=== PATIENT | male | born 1945 | race Caucasian/White ===

== ENCOUNTER 2017-02-03 07:14 | Day surgery (SDC) | payer MEDICARE, BC ==
[2017-02-03] VITALS (9 sets, daily range): BP systolic 130–175; BP diastolic 57–95; PULSE 68–85; TEMP 97.6
[~2017-02-03] VITALS: Ht 182.9 cm; Wt 104.5 kg
[2017-02-03] MEDS ORDERED: GLUCOPHAGE1000 MG PO (08:00)
[2017-02-03] MEDS ORDERED: JANUVIA50 MG PO (08:00)
[2017-02-03] MEDS ORDERED: CANA100T PO (08:01)
[2017-02-03] MEDS ORDERED: NORVASC 5MG5 MG/TAB PO (08:02)
[2017-02-03] MEDS ORDERED: COREG 25MG25 MG/TAB PO (08:02)
[2017-02-03] MEDS ORDERED: AMARYL4 MG PO (08:02)
[2017-02-03] MEDS ORDERED: COZAAR 50MG50 MG/TAB PO (08:03)
[2017-02-03 08:04] LABS: MEAN CELL VOLUME 92 fl (80.0-100.0); MEAN CORPUSCULAR HGB CONC 32 g/dl (33.0-37.0); MEAN PLATELET VOLUME 11.5 fl (7.4-10.4); PLATELET COUNT 120 K/mm3 (130-400); RED BLOOD COUNT 3.33 M/mm3 (4.20-5.60); REDCELL DISTRIBUTION WIDTH-CV 14.5 % (11.5-14.5); WHITE BLOOD COUNT 5.3 K/mm3 (4.8-10.8)
[2017-02-03] MEDS ORDERED: ZYLOPRIM 100MG100 MG PO (08:04)
[2017-02-03] MEDS ORDERED: PRILOSEC 20MG20 MG PO (08:04)
[2017-02-03] MEDS ORDERED: PRAVACHOL 20MG20 MG PO (08:04)
[2017-02-03] MEDS ORDERED: OMEGA-3 1000 MG1 CAP PO (08:05)
[2017-02-03] MEDS ORDERED: INDOCIN50 MG PO (08:05)
[2017-02-03 08:06] LABS: HEMATOCRIT 30.5 % (42.0-52.0); HEMOGLOBIN 9.8 g/dl (13.5-18.0); MEAN CORPUSCULAR HEMOGLOBIN 29 pg (27.0-31.0)
[2017-02-03] MEDS ORDERED: FOLIC ACID800 MCG PO (08:06)
[2017-02-03] MEDS ORDERED: NIACIN FLUSH F400 MG PO (08:06)
[2017-02-03] MEDS ORDERED: THE MEDICINE S200 M2 PO (08:07)
[2017-02-03 08:08] LABS: CALCIUM 8.8 mg/dL (8.4-10.2); CREATININE, serum 1.36 mg/dL (0.66-1.25); POTASSIUM 4.9 mmol/L (3.4-5.0)
[2017-02-03] MEDS ORDERED: B COMPLEX #11 TA1 PO (08:08)
[2017-02-03 08:09] LABS: INR 1.1 (0.8-3.0); PROTHROMBIN TIME 11.9 SECONDS (9.7-12.8)
[2017-02-03] MEDS ORDERED: ASPIRIN 81M81 MG/TA2 PO (08:11)
[2017-02-03] MEDS ORDERED: VITAMIN D31000 IU PO (08:13)
[2017-02-03] MEDS ORDERED: BETACAROTENE PO (08:13)
== END 2017-02-03 13:42 | disposition critical access hospital (66) ==
LOC: EUO 07:14 → COL.RAD 07:30 → EUO 07:30
PROVIDERS: Internal Medicine Cardiovascular Disease
DX: I25.10 Atherosclerotic heart disease of native coronary artery without angina pectoris (principal); R94.39 Abnormal result of other cardiovascular function study; R06.00 Dyspnea, unspecified; E11.9 Type 2 diabetes mellitus without complications; I10 Essential (primary) hypertension; E78.5 Hyperlipidemia, unspecified
CPT/HCPCS: C1769; C1887; C1894; J0153; J1644; J2250; J3010; Q9967

== ENCOUNTER 2017-03-31 08:18 | Outpatient (CLI) | payer MEDICARE, BC ==
[~2017-03-31] VITALS: Ht 182.9 cm; Wt 100.9 kg
[~2017-03-31 08:18] MED LIST: AMARYL4 MG PO; ASPIRIN 81M81 MG/TA2 PO; B COMPLEX #11 TA1 PO; BETACAROTENE PO; CANA100T PO; COREG 25MG25 MG/TAB PO; COZAAR 50MG50 MG/TAB PO; FOLIC ACID800 MCG PO; GLUCOPHAGE1000 MG PO; INDOCIN50 MG PO; JANUVIA50 MG PO; NIACIN FLUSH F400 MG PO; NORVASC 5MG5 MG/TAB PO; OMEGA-3 1000 MG1 CAP PO; PRAVACHOL 20MG20 MG PO; PRILOSEC 20MG20 MG PO; THE MEDICINE S200 M2 PO; VITAMIN D31000 IU PO; ZYLOPRIM 100MG100 MG PO
[2017-03-31] MEDS ORDERED: PACERONE200 MG PO (08:46)
[2017-03-31] MEDS ORDERED: ELIQUIS 5MG PO (08:48)
[2017-03-31] MEDS ORDERED: LIPITOR20 MG PO (08:49)
[2017-03-31] MEDS ORDERED: COREG 6.256.25 MG/TA PO (08:50)
[2017-03-31 09:00] VITALS: BP 180/67; PULSE 76; TEMP 97.9
== END 2017-03-31 11:53 | disposition home or self-care (01) ==
LOC: COL.CAR 08:18
DX: I48.0 Paroxysmal atrial fibrillation (principal); J84.10 Pulmonary fibrosis, unspecified; E78.5 Hyperlipidemia, unspecified; Z95.1 Presence of aortocoronary bypass graft; I10 Essential (primary) hypertension; E11.9 Type 2 diabetes mellitus without complications
CPT/HCPCS: C1764

== ENCOUNTER 2018-01-01 08:52 | Day surgery (SDC) | payer MEDICARE, BC ==
[~2018-01-01] VITALS: Ht 182.9 cm; Wt 107.7 kg
[2018-01-01] VITALS (11 sets, daily range): BP systolic 138–206; BP diastolic 69–96; PULSE 60–93; TEMP 98.7
[~2018-01-01 08:52] MED LIST changes: +COREG 6.256.25 MG/TA PO; +ELIQUIS 5MG PO; +LIPITOR20 MG PO; +PACERONE200 MG PO
[2018-01-01 09:29] LABS: MEAN CELL VOLUME 103 fl (80.0-100.0); MEAN CORPUSCULAR HGB CONC 33 g/dl (33.0-37.0); MEAN PLATELET VOLUME 11.3 fl (7.4-10.4); PLATELET COUNT 125 K/mm3 (130-400); RED BLOOD COUNT 3.39 M/mm3 (4.20-5.60); REDCELL DISTRIBUTION WIDTH-CV 13.9 % (11.5-14.5)
[2018-01-01 09:30] LABS: HEMATOCRIT 34.8 % (42.0-52.0); HEMOGLOBIN 11.6 g/dl (13.5-18.0); MEAN CORPUSCULAR HEMOGLOBIN 34 pg (27.0-31.0)
[2018-01-01 09:35] LABS: INR 1.1 (0.8-3.0); PROTHROMBIN TIME 12.4 SECONDS (9.7-12.8)
[2018-01-01 09:45] LABS: CALCIUM 8.9 mg/dL (8.4-10.2); CREATININE, serum 1.34 mg/dL (0.66-1.25); POTASSIUM 4.6 mmol/L (3.4-5.0)
[2018-01-01] MEDS ORDERED: LASIX 20MG TABL20 MG PO (09:55)
[2018-01-01] MEDS ORDERED: NORVASC2.5 MG PO (09:55)
[2018-01-01] MEDS ORDERED: OFEV150 MG PO (09:56)
[2018-01-01] MEDS ORDERED: NIACIN NO FLUSH1 CAP PO (09:57)
[2018-01-01] MEDS ORDERED: NORVASC 5MG5 MG/TAB PO (13:55)
[2018-01-01] MEDS ORDERED: COREG 25MG25 MG/TAB PO (13:56)
== END 2018-01-01 18:30 | disposition home or self-care (01) ==
LOC: COL.CAR 08:52
PROVIDERS: Internal Medicine Cardiovascular Disease
DX: I25.810 Atherosclerosis of coronary artery bypass graft(s) without angina pectoris (principal); I47.2 Ventricular tachycardia; I25.82 Chronic total occlusion of coronary artery; E11.9 Type 2 diabetes mellitus without complications; I73.9 Peripheral vascular disease, unspecified; Z95.5 Presence of coronary angioplasty implant and graft; J84.10 Pulmonary fibrosis, unspecified; Z99.81 Dependence on supplemental oxygen; I10 Essential (primary) hypertension; Z95.1 Presence of aortocoronary bypass graft
CPT/HCPCS: C1760; C1769; C1894; J0360; J2250; J3010; Q9967

== ENCOUNTER 2020-05-08 17:51 | Inpatient (IN) | payer MEDICARE, BC ==
[~2020-05-08] VITALS: Ht 182.9 cm; Wt 98.1 kg
[~2020-05-08 17:51] MED LIST changes: +AMARYL 2MG T2 MG/TAB PO; -AMARYL4 MG PO; +LASIX 20MG TABL20 MG PO; +NIACIN NO FLUSH1 CAP PO; +NORVASC2.5 MG PO; +OFEV150 MG PO; -ZYLOPRIM 100MG100 MG PO; +ZYLOPRIM 300MG300 MG PO
[2020-05-08 23:14] VITALS: BP 161/85; PULSE 119; TEMP 97.5
[2020-05-08 23:40] VITALS: BP 173/80; PULSE 110; TEMP 97.4
[2020-05-08] MEDS ORDERED: CARDIZEM LA180 MG PO (23:49)
[2020-05-08] MEDS ORDERED: BYSTOLIC10 MG PO (23:50)
[2020-05-08] MEDS ORDERED: GLUCOPHAGE1000 MG PO (23:51)
[2020-05-08] MEDS ORDERED: DEMADEX10 MG PO (23:54)
[2020-05-08] MEDS ORDERED: PROTONIX 40MG T40 MG PO (23:55)
[2020-05-08] MEDS ORDERED: SLO-NIACIN500 MG PO (23:57)
[2020-05-08] MEDS ORDERED: PLAVIX 75MG TAB75 MG PO (23:58)
[2020-05-09] VITALS (7 sets, daily range): BP systolic 119–159; BP diastolic 53–97; PULSE 63–99; TEMP 97.3–98.2
[2020-05-09] MEDS ORDERED: PROAIR HFA0.09 MG/AC IH (00:05)
[2020-05-09] MEDS ORDERED: FOLIC ACID 11 MG/TA1 PO (00:14)
[2020-05-09] MEDS ORDERED: VITAMIN C500 MG PO (00:17)
[2020-05-09] MEDS ORDERED: INDOCIN50 MG PO (00:21)
[2020-05-09] MEDS ORDERED: BIOTIN5000 MCG PO (00:22)
--- NOTE | 2020-05-09 07:13 | NUR ---
Report given to ERIN Suarez.
[2020-05-09 08:31] LABS: BASO % 0.1 % (0.0-2.0); EOS # 0.8 (0.0-0.7); EOS % 8.6 % (0-4.0); GRAN # 6.4 (1.4-6.5); GRAN % 72.1 % (42.2-75.2); HEMATOCRIT 39.5 % (42.0-52.0); HEMOGLOBIN 12.7 g/dl (13.5-18.0); LYMPH % 11.5 % (20.0-51.0); MEAN CELL VOLUME 110 fl (80.0-100.0); MEAN CORPUSCULAR HEMOGLOBIN 36 pg (27.0-31.0); MEAN CORPUSCULAR HGB CONC 32 g/dl (33.0-37.0); MEAN PLATELET VOLUME 12.1 fl (7.4-10.4); MONO # 0.6 (0.1-0.6); MONO % 7.1 % (1.7-9.3); PLATELET COUNT 75 K/mm3 (130-400); RED BLOOD COUNT 3.58 M/mm3 (4.20-5.60); REDCELL DISTRIBUTION WIDTH-CV 15.9 % (11.5-14.5)
[2020-05-09 08:46] LABS: ALBUMIN 4.2 gm/dL (3.5-5.0); CALCIUM 9.3 mg/dL (8.4-10.2); CREATININE, serum 4.76 (0.66-1.25); PHOSPHOROUS 5.8 mg/dL (2.5-4.5); POTASSIUM 4.4 mmol/L (3.4-5.0)
--- NOTE | 2020-05-09 09:40 | NUR ---
PT AOX4. DENIES PAIN. STEADY INDEPENDENT AMBULATION. AT BEDSIDE. 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 ABLE TO MAKE NEEDS KNOWN. ATE 80% BREAKFAST. DENIES SOB AT THIS TIME
--- NOTE | 2020-05-09 11:17 | NUR ---
Superintendent Job met with patient and patient's , Ni (ph#[phone]) to discuss discharge planning. Patient lives in [place] with Ni and sees Dr. Peterson for primary care. Patient has many of his medications [facility], but also sometimes picks up medications from [facility] in [place], depending on medication costs. Patient reports independence with ADLS and denies DME usage. Patient states his , Ni is his DPOA. Patient plans to return home at discharge. PT/OT have been ordered. SW to continue to follow as needed.
[2020-05-09 14:13] LABS: MUCOUS Present /lpf; PH 5 (5-8); SQUAMOUS EPITHELIAL None Seen /hpf; URINE APPEARANCE Hazy; URINE BACTERIA Rare /hpf; URINE BILIRUBIN Negative (NEGATIVE); URINE BLOOD Negative (NEGATIVE); URINE COLOR Yellow; URINE GLUCOSE Negative (NEGATIVE); URINE KETONE Negative (NEGATIVE); URINE LEUKOCYTE ESTERASE Negative (NEGATIVE); URINE NITRATE Negative (NEGATIVE); URINE PROTEIN(semi-quant) 2+ (NEGATIVE); URINE RBC 0-2 /hpf; URINE UROBILINOGEN Negative (NEGATIVE); URINE WBC 0-2 /hpf
[2020-05-09 14:21] LABS: COLLECTION METHOD CLEAN CATCH
[2020-05-09 14:28] LABS: URINE PROTEIN:CREAT RATIO 0.51 (0.00-0.14)
[2020-05-09 14:54] LABS: CREATININE, serum 4.21 (0.66-1.25); FRACTIONAL EXCRETION OF NA+ 0.4 %
--- NOTE | 2020-05-09 15:59 | NUR ---
CARE TRANSFERED TO ANABELL KHAN @ 1600. NO NEW CONCERNS. PT AOX4. MELYSSA BROOKS
--- NOTE | 2020-05-09 16:18 | NUR ---
Cares taken over for ERIN Suarez. pt sitting in recliner, A&O, denies needs at this time.
[2020-05-09 20:27] LABS: ALBUMIN 3.7 gm/dL (3.5-5.0); BILIRUBIN,TOTAL 0.8 mg/dL (0.0-1.0); CALCIUM 8.8 mg/dL (8.4-10.2); CREATININE, serum 4.31 (0.66-1.25); POTASSIUM 4.1 mmol/L (3.4-5.0); TOTAL PROTEIN 6.8 gm/dL (6.4-8.2)
--- NOTE | 2020-05-09 20:30 | NUR ---
Received report from ERIN Palomares. A/O X4. Pt sitting in recliner chair eating dinner. Meds administered. Denies any pain or discomfort at this time. INT to RH intact, flushed without issue. Explained to pt to notify staff after using BR to measure PVR, pt understands. Needs met. Call light within reach.
[2020-05-10 03:12] VITALS: BP 112/59; PULSE 73; TEMP 98.4
--- NOTE | 2020-05-10 06:21 | NUR ---
Pt uneventful during this shift. Pt aware of PVR bladder scan and to notify staff after he voids. Urinal in BR. Meds administered. Pt slept in recliner chair last night. Call light within reach.
--- NOTE | 2020-05-10 07:04 | NUR ---
Report given to ERIN Palomares RN.
[2020-05-10 07:24] VITALS: BP 123/52; PULSE 80; TEMP 97.5
[2020-05-10 08:10] LABS: BASO % 0.1 % (0.0-2.0); EOS # 1.6 (0.0-0.7); EOS % 15.5 % (0-4.0); GRAN # 6.9 (1.4-6.5); GRAN % 66.4 % (42.2-75.2); HEMATOCRIT 38.3 % (42.0-52.0); HEMOGLOBIN 12.5 g/dl (13.5-18.0); LYMPH # 1.1 (1.2-3.4); LYMPH % 10.7 % (20.0-51.0); MEAN CELL VOLUME 107 fl (80.0-100.0); MEAN CORPUSCULAR HEMOGLOBIN 35 pg (27.0-31.0); MEAN CORPUSCULAR HGB CONC 33 g/dl (33.0-37.0); MEAN PLATELET VOLUME 11.5 fl (7.4-10.4); MONO # 0.7 (0.1-0.6); MONO % 6.8 % (1.7-9.3); PLATELET COUNT 65 K/mm3 (130-400); RED BLOOD COUNT 3.59 M/mm3 (4.20-5.60)
[2020-05-10 08:19] LABS: ALBUMIN 4.2 gm/dL (3.5-5.0); CALCIUM 9.2 mg/dL (8.4-10.2); CREATININE, serum 4.26 (0.66-1.25); PHOSPHOROUS 4.9 mg/dL (2.5-4.5)
[2020-05-10 09:37] LABS: RETIC # 0.04 M/mm3 (0.02-0.16); RETIC % 1.2 % (0.5-3.52)
[2020-05-10 12:50] VITALS: BP 102/56; PULSE 80; TEMP 97.5
[2020-05-10 16:01] VITALS: BP 115/59; PULSE 73; TEMP 97.7
--- NOTE | 2020-05-10 16:16 | NUR ---
Pt assessment completed and charted, roomair, independent. I/V flushed without complications. Morning meds provided as per JAN, breakfast and lunch tolerated well. No N/V/D, pain, numbness, tingling, SOB at this time as per pt. came to visit for sometime. Did void only once in the morning sometimes and asked him to inform the nurse, if he goes again, so I could do the after void bladder scan. No further needs at this time.
--- NOTE | 2020-05-10 18:35 | NUR ---
Pt rested, slept on and off on his chair. Accu checked and treated as per JAN. Bladder scan done and showed 52 ml as the highest amount. Informed pt to tell the nurse next time when he void, so the nurse could do the post void bladder scan. No further needs at this time.
[2020-05-10 19:00] VITALS: BP 114/56; PULSE 68; TEMP 98.3
--- NOTE | 2020-05-10 20:30 | NUR ---
Report received from ERIN Palomares. Pt sitting in chair upon entry. Denies any pain or concerns at this time. Meds adminsitered as ordered. INT to LH intact, flushed, dressing CDI. Pt understands to notify staff after he voids to do bladder scan. Needs met at this time. Call light within reach.
[2020-05-10 23:01] VITALS: BP 120/50; PULSE 70; TEMP 97.4
[2020-05-11 03:28] VITALS: BP 122/57; PULSE 71; TEMP 98.3
[2020-05-11 05:20] LABS: FOLATE (FOLIC ACID) 15.4 ng/mL (>=4.0)
--- NOTE | 2020-05-11 06:00 | NUR ---
Pt uneventful during this shift. Pt did not call out to staff if he voided during this shift. Pt slept in recliner chair. Meds administered. Call light within reach.
--- NOTE | 2020-05-11 07:11 | NUR ---
Report given to ERIN Doan and ERIN Palomares.
[2020-05-11 07:50] LABS: KAPPA FREE LIGHT CHAIN-SERUM 113.04 mg/L (()); KAPPA LAMBDA RATIO 1.68 ratio (()); LAMDA FREE LIGHT CHAIN SERUM 67.41 mg/L (())
[2020-05-11 08:22] LABS: BASO % 0.2 % (0.0-2.0); EOS # 1.1 (0.0-0.7); EOS % 11.2 % (0-4.0); GRAN # 7.2 (1.4-6.5); GRAN % 70.8 % (42.2-75.2); HEMATOCRIT 34.3 % (42.0-52.0); HEMOGLOBIN 11.3 g/dl (13.5-18.0); LYMPH % 9.8 % (20.0-51.0); MEAN CELL VOLUME 107 fl (80.0-100.0); MEAN CORPUSCULAR HEMOGLOBIN 35 pg (27.0-31.0); MEAN CORPUSCULAR HGB CONC 33 g/dl (33.0-37.0); MEAN PLATELET VOLUME 11.3 fl (7.4-10.4); MONO # 0.8 (0.1-0.6); MONO % 7.7 % (1.7-9.3); PLATELET COUNT 57 K/mm3 (130-400)
[2020-05-11 09:02] LABS: ALBUMIN 3.9 gm/dL (3.5-5.0); CALCIUM 8.8 mg/dL (8.4-10.2); CREATININE, serum 4.34 (0.66-1.25); PHOSPHOROUS 4.2 mg/dL (2.5-4.5); POTASSIUM 4.3 mmol/L (3.4-5.0)
[2020-05-11 09:10] VITALS: BP 129/58; PULSE 88; TEMP 97.4
--- NOTE | 2020-05-11 10:36 | NUR ---
Pt bladder scanned this morning by lieutenant shift supervisor. Pt voided 90ml, 4ml PVR. pt states he didn't void overnight and also states he doesn't "feel the urge to void" either. pt states he had BM this morning, no blood noted and it was soft formed and light brown. This nurse informed ERIN Andrews about pt conditionand PVR results.
[2020-05-11 12:15] VITALS: BP 116/56; PULSE 91; TEMP 98.3
--- NOTE | 2020-05-11 13:23 | NUR ---
Pt assessment compleed and charted, alert/oriented, independent. Meds provided as per MAR. No N/V/D, pain, tingling, numbness, SOB as per pt. I/V flushed without complications. Pt had breakfast and lunch, tolerated well. No further needs at this time. Informed him about occult stool test and placed needed equipments on his bathroom.
[2020-05-11 16:00] VITALS: BP 110/52; PULSE 95; TEMP 98.4
--- NOTE | 2020-05-11 18:24 | NUR ---
Pt called, answered her questions and gave her updates about the day, she would like the same for tomorrow, will spread the word to the overnight cashier. Pt had bowel movement 3 times mixed with blood. Urinate approx. 250 ml in the afternoon. Blood sugar increased little high this morning and the afternoon, treated as per JAN. Pt has no further needs at this time.
[2020-05-11 20:30] VITALS: BP 102/79; PULSE 90; TEMP 97.4
--- NOTE | 2020-05-11 21:05 | NUR ---
Patient assessed at this time. Alert and oriented x 4, and able to make needs known. Denies having pain and discomfort at this time. Peripheral INT to right hand. Site flushed, and without redness, warmth, swelling, and pain. Denies SOB and dyspnea. LS CTA. Respirations even and unlabored. HRR. Capillary refill less than 3 seconds. Non-tenting skin turgor. BSAx4. Abdomen soft and non-tender. 2+ edema BLE. Voices no questions, needs, or concerns at this time. In recliner with call light within reach.
[2020-05-12] VITALS (7 sets, daily range): BP systolic 122–166; BP diastolic 50–92; PULSE 68–90; TEMP 97.4–98.4
--- NOTE | 2020-05-12 05:38 | NUR ---
Patient has voiced no questions, needs, or concerns this shift. Resting with call light within reach. Denies pain and discomfort.
[2020-05-12 06:24] LABS: BASO % 0.1 % (0.0-2.0); EOS # 0.5 (0.0-0.7); EOS % 5.7 % (0-4.0); GRAN # 7.6 (1.4-6.5); GRAN % 79.8 % (42.2-75.2); LYMPH # 0.7 (1.2-3.4); LYMPH % 7.3 % (20.0-51.0); MEAN CELL VOLUME 106 fl (80.0-100.0); MEAN CORPUSCULAR HEMOGLOBIN 35 pg (27.0-31.0); MEAN CORPUSCULAR HGB CONC 33 g/dl (33.0-37.0); MEAN PLATELET VOLUME 11.2 fl (7.4-10.4); MONO # 0.6 (0.1-0.6); MONO % 6.8 % (1.7-9.3); PLATELET COUNT 56 K/mm3 (130-400); RED BLOOD COUNT 3.15 M/mm3 (4.20-5.60); REDCELL DISTRIBUTION WIDTH-CV 16.2 % (11.5-14.5)
[2020-05-12 06:29] LABS: HEMATOCRIT 33.5 % (42.0-52.0)
[2020-05-12 06:37] LABS: ALBUMIN 3.9 gm/dL (3.5-5.0); CALCIUM 8.9 mg/dL (8.4-10.2); CREATININE, serum 4.66 (0.66-1.25); PHOSPHOROUS 3.4 mg/dL (2.5-4.5); POTASSIUM 4.1 mmol/L (3.4-5.0)
--- NOTE | 2020-05-12 08:55 | NUR ---
Pt awake and alert upon entry, no C/O pain at this time, shift assessments complete, left Pt call light in reach, bed in lowest position.
--- NOTE | 2020-05-12 19:11 | NUR ---
Pt has been resting in the room, spent most of the day in the recliner, Pt eating and drinking well, no C/O pain today. VS have remained stable.
--- NOTE | 2020-05-12 20:50 | NUR ---
Patient assessed at this time. Alert and oriented x 4, and able to make needs known. Denies having pain and discomfort at this time. Peripheral INT to right hand flushed. Site is without redness, warmth, swelling, and pain. Denies having SOB and dyspnea. LS CTA. Respirations even and unlabored. On oxygen at 2 L/min via NC. HRR. Capillary refill less than 3 seconds. Non-tenting skin turgor. BSAx4. Abdomen soft and non-tender. 2+ edema BLE. Had smear of BM. Hemoccult obtained and taken to lab. Voices no questions, needs, or concerns at this time. Resting in recliner with call light within reach.
[2020-05-13 03:10] VITALS: BP 137/68; PULSE 88; TEMP 97.6
--- NOTE | 2020-05-13 05:12 | NUR ---
Patient slept in recliner again tonight. States that he prefers to sleep there. Did wear oxygen during the night. Has denied having pain and discomfort. Voices no questions, needs, or concerns at this time. Call light is within reach.
[2020-05-13 07:21] VITALS: BP 128/75; PULSE 96; TEMP 97.6
[2020-05-13 07:28] LABS: BASO % 0.2 % (0.0-2.0); EOS # 0.5 (0.0-0.7); EOS % 4.9 % (0-4.0); GRAN # 8.1 (1.4-6.5); HEMOGLOBIN 11.1 g/dl (13.5-18.0); LYMPH # 0.7 (1.2-3.4); LYMPH % 7.1 % (20.0-51.0); MEAN CELL VOLUME 108 fl (80.0-100.0); MEAN CORPUSCULAR HEMOGLOBIN 36 pg (27.0-31.0); MEAN CORPUSCULAR HGB CONC 33 g/dl (33.0-37.0); MEAN PLATELET VOLUME 11.9 fl (7.4-10.4); MONO # 0.6 (0.1-0.6); MONO % 6.4 % (1.7-9.3); PLATELET COUNT 62 K/mm3 (130-400); RED BLOOD COUNT 3.12 M/mm3 (4.20-5.60); REDCELL DISTRIBUTION WIDTH-CV 16.6 % (11.5-14.5)
[2020-05-13 07:39] LABS: ALBUMIN 3.9 gm/dL (3.5-5.0); CREATININE, serum 4.56 (0.66-1.25); PHOSPHOROUS 3.6 mg/dL (2.5-4.5)
[2020-05-13 07:46] LABS: HEMATOCRIT 33.7 % (42.0-52.0)
[2020-05-13 12:00] VITALS: BP 146/75; PULSE 89; TEMP 97.8
[2020-05-13 16:43] VITALS: BP 121/62; PULSE 79; TEMP 97.8
[2020-05-13 18:59] VITALS: BP 134/65; PULSE 64; TEMP 98.3
--- NOTE | 2020-05-13 20:45 | NUR ---
Sitting up in recliner- SCD,s on, denies pain, has o2 at 2L/nc- states he feels better with this on-- sats 99-100%-- looks like we still need a FENA urine specimen-- pt aware and will call when he goes next--no requests-
[2020-05-13 23:10] VITALS: BP 132/64; PULSE 86; TEMP 98.5
[2020-05-14 03:16] VITALS: BP 146/63; PULSE 91; TEMP 97.6
--- NOTE | 2020-05-14 05:50 | NUR ---
Did urinate 200cc stephen urine-- collected for FENA, lab called and are here to draw blood, Did use bladder scanner to do PVR, did not detect any urine in bladder,, pt states he feels empty
[2020-05-14 06:15] LABS: HEMOGLOBIN 10.3 g/dl (13.5-18.0); MEAN CELL VOLUME 107 fl (80.0-100.0); MEAN CORPUSCULAR HEMOGLOBIN 35 pg (27.0-31.0); MEAN CORPUSCULAR HGB CONC 33 g/dl (33.0-37.0); PLATELET COUNT 65 K/mm3 (130-400); RED BLOOD COUNT 2.95 M/mm3 (4.20-5.60); REDCELL DISTRIBUTION WIDTH-CV 16.2 % (11.5-14.5)
[2020-05-14 06:17] LABS: HEMATOCRIT 31.6 % (42.0-52.0)
--- NOTE | 2020-05-14 06:30 | NUR ---
PT IS SLEEPING IN THE RECLINER. NO C/O OF PAIN OR DISCOMFORT. CALL LIGHT WITHIN REACH. NO FURTHER CONCERNS AT THIS TIME.
[2020-05-14 06:32] LABS: CREATININE, serum 4.22 (0.66-1.25); FRACTIONAL EXCRETION OF NA+ 0.7 %
[2020-05-14 06:33] LABS: ALBUMIN 3.7 gm/dL (3.5-5.0); CALCIUM 8.7 mg/dL (8.4-10.2); CREATININE, serum 4.24 (0.66-1.25); PHOSPHOROUS 3.2 mg/dL (2.5-4.5); POTASSIUM 3.9 mmol/L (3.4-5.0)
[2020-05-14 08:00] VITALS: BP 148/68; PULSE 95; TEMP 97.5
[2020-05-14 09:54] LABS: ANISOCYTOSIS 1+; BAND 4 % (0-10); EOSINOPHIL 1 % (0-4); LYMPHOCYTE 12 % (20.0-51.0); NEUTROPHILS 81 % (42.0-75.2)
[2020-05-14 09:55] LABS: PLATELET ESTIMATE DECREASED (NORMAL)
[2020-05-14 12:05] VITALS: BP 145/66; PULSE 94; TEMP 97.8
--- NOTE | 2020-05-14 20:13 | NUR ---
Pt has had an uneventful day. Sherry Hurt APRN visited, and informed him of his positive stool occults and potential GI consult. Sherry stated "Wait and see". Continually monitored patient who was stable and pleasant all day.
[2020-05-14 20:26] VITALS: BP 127/53; PULSE 81; TEMP 97.6
--- NOTE | 2020-05-14 20:45 | NUR ---
Patient assessed at this time. Alert and oriented x 4, and able to make needs known. Denies having pain and discomfort at this time. Peripheral INT to right hand. Denies having SOB and dyspnea, except with exertion. Puts on oxygen when getting SOB. Currently on room air. LS CTA. Respirations even and unlabored. HRR. Capillary refill less than 3 seconds. Non-tenting skin turgor. BSAx4. Abdomen soft and non-tender. 1+ edema BLE. Voices no questions, needs, or concerns at this time. Resting in bed with call light within reach.
[2020-05-15 01:30] VITALS: BP 142/67; PULSE 83; TEMP 97.4
[2020-05-15 05:33] VITALS: BP 154/77; PULSE 93; TEMP 97.9
--- NOTE | 2020-05-15 05:55 | NUR ---
Patient has been resting in recliner. Reports that is where he prefers to sleep. Has oxygen on at 2 L/min via NC PRN, as patient gets SOB with exertion. Voices no questions, needs, or concerns at this time. Resting in recliner with call light within reach.
[2020-05-15 07:41] VITALS: BP 148/74; PULSE 87; TEMP 97.6
[2020-05-15 07:49] LABS: BASO % 0.3 % (0.0-2.0); EOS # 0.7 (0.0-0.7); EOS % 9.2 % (0-4.0); GRAN # 4.9 (1.4-6.5); GRAN % 67.3 % (42.2-75.2); LYMPH # 0.8 (1.2-3.4); LYMPH % 10.3 % (20.0-51.0); MEAN CELL VOLUME 108 fl (80.0-100.0); MEAN CORPUSCULAR HGB CONC 32 g/dl (33.0-37.0); MEAN PLATELET VOLUME 11.9 fl (7.4-10.4); MONO # 0.9 (0.1-0.6); MONO % 12.5 % (1.7-9.3); PLATELET COUNT 66 K/mm3 (130-400); RED BLOOD COUNT 2.79 M/mm3 (4.20-5.60); REDCELL DISTRIBUTION WIDTH-CV 16.3 % (11.5-14.5)
[2020-05-15 07:55] LABS: ALBUMIN 3.5 gm/dL (3.5-5.0); CALCIUM 8.5 mg/dL (8.4-10.2); CREATININE, serum 3.64 (0.66-1.25); PHOSPHOROUS 2.8 mg/dL (2.5-4.5)
[2020-05-15 08:09] LABS: HEMATOCRIT 30.2 % (42.0-52.0); HEMOGLOBIN 9.6 g/dl (13.5-18.0); MEAN CORPUSCULAR HEMOGLOBIN 34 pg (27.0-31.0)
--- NOTE | 2020-05-15 11:10 | NUR ---
Pt awake and alert upon entry, sitting in the recliner, no C/O pain currently, shift assessments complete, left Pt call light in reach, bed in lowest position.
[2020-05-15 11:31] LABS: A/G RATIO (PEP) 0.97 (()); BETA GLOBULINS (PEP) 0.9 g/dL (0.7-1.2)
[2020-05-15 11:41] VITALS: BP 166/68; PULSE 110; TEMP 97.7
--- NOTE | 2020-05-15 13:11 | NUR ---
SW's met with the patient to follow up and to review discharge plan. The patient plans to return back home with his upon discharge. He states that he may tentatively be able to discharge tomorrow. SW to continue to follow.
--- NOTE | 2020-05-15 14:20 | NUR ---
First visit from the joiners supervisor. No needs right now.
[2020-05-15 17:00] VITALS: BP 149/54; PULSE 86; TEMP 97.4
--- NOTE | 2020-05-15 19:56 | NUR ---
Pt rested in the room today, no C/O pain during the shift. VS have remained stable
[2020-05-15 21:01] VITALS: BP 129/52; PULSE 91; TEMP 98.2
--- NOTE | 2020-05-15 23:56 | NUR ---
Pt assessment completed, charted, alert, oriented, roomair, independent. Meds provided as per MAR, tolerated well. No N/V/D, pain, numbness, tingling, SOB as per pt. I/V line flushed without complications. settled down on his chair, call light on reach. No further needs at this time.
[2020-05-16 01:36] VITALS: BP 148/59; PULSE 78; TEMP 98.4
[2020-05-16 04:13] VITALS: BP 143/84; PULSE 74; TEMP 98.4
--- NOTE | 2020-05-16 05:36 | NUR ---
Pt slept through out the night. No further needs at this time.
[2020-05-16 06:54] LABS: ALBUMIN 3.7 gm/dL (3.5-5.0); CALCIUM 8.3 mg/dL (8.4-10.2); CREATININE, serum 3.14 (0.66-1.25); PHOSPHOROUS 2.6 mg/dL (2.5-4.5); POTASSIUM 3.7 mmol/L (3.4-5.0)
[2020-05-16 07:00] LABS: BASO % 0.2 % (0.0-2.0); EOS # 0.7 (0.0-0.7); EOS % 7.3 % (0-4.0); GRAN # 6.2 (1.4-6.5); LYMPH # 1.5 (1.2-3.4); LYMPH % 15.1 % (20.0-51.0); MEAN CELL VOLUME 108 fl (80.0-100.0); MEAN CORPUSCULAR HGB CONC 33 g/dl (33.0-37.0); MEAN PLATELET VOLUME 11.7 fl (7.4-10.4); MONO # 1.2 (0.1-0.6); MONO % 12.9 % (1.7-9.3); PLATELET COUNT 78 K/mm3 (130-400); RED BLOOD COUNT 2.77 M/mm3 (4.20-5.60); REDCELL DISTRIBUTION WIDTH-CV 16.4 % (11.5-14.5)
[2020-05-16 07:03] LABS: HEMATOCRIT 29.9 % (42.0-52.0); HEMOGLOBIN 9.8 g/dl (13.5-18.0); MEAN CORPUSCULAR HEMOGLOBIN 35 pg (27.0-31.0)
[2020-05-16 07:59] VITALS: BP 154/58; PULSE 83; TEMP 97.6
--- NOTE | 2020-05-16 10:53 | NUR ---
Assessment completed, alert/oriented, vital signs stable, denies pain or discomfort, heart RRR, lungs CTA/ no resp.difficulty note, labs are improving, discussed plan of care with Nephrology and plans for discharge home today
[2020-05-16 11:16] VITALS: BP 127/85; PULSE 105; TEMP 97.5
[2020-05-16] MEDS ORDERED: SODIUM BICARBO650 MG PO (11:25)
--- NOTE | 2020-05-16 12:10 | NUR ---
Pt has completed a release of information for himself to recieve his labwork results as of yesterday. He was not able to get into his [facility] portal and was frustrated so was assisted in talking with appropriate staff to rest password in the next 10 days as well. He is hopeful to be going home today.
--- NOTE | 2020-05-16 14:06 | NUR ---
The patient is to discharge back home with his today, 05/16. SW's met with the patient and presented and explained the IM form. The patient verbalized understanding, signed, and SW provided him with a copy. No additional needs at this time.
--- NOTE | 2020-05-16 15:03 | NUR ---
Patient is discharging home, discussed discharge orders with him, instructed to follow up PCP/ and nephrology as scheduled, instructed to take meds as prescirbed/ discussed changes that were made, IV and tele removed, leaving with his , AP OPERATOR escorted him out the door
[2020-05-18 10:39] LABS: IMMUNOFIXATION (PEP) SEE PCI
== END 2020-05-16 15:06 | disposition home or self-care (01) | DRG 683 ==
LOC: MEDICAL 17:51
PROVIDERS: Internal Medicine; Nurse Practitioner; ADMIT Internal Medicine Nephrology
DX: N17.9 Acute kidney failure, unspecified (principal); E87.2 Acidosis; K92.2 Gastrointestinal hemorrhage, unspecified; I95.9 Hypotension, unspecified; I48.91 Unspecified atrial fibrillation; D69.6 Thrombocytopenia, unspecified; N18.3 Chronic kidney disease, stage 3 (moderate); E11.22 Type 2 diabetes mellitus with diabetic chronic kidney disease; I12.9 Hypertensive chronic kidney disease with stage 1 through stage 4 chronic kidney disease, or unspecified chronic kidney disease; M10.9 Gout, unspecified; E78.5 Hyperlipidemia, unspecified; K21.9 Gastro-esophageal reflux disease without esophagitis; J84.10 Pulmonary fibrosis, unspecified; D75.89 Other specified diseases of blood and blood-forming organs; E83.39 Other disorders of phosphorus metabolism; Z95.1 Presence of aortocoronary bypass graft; E11.319 Type 2 diabetes mellitus with unspecified diabetic retinopathy without macular edema; Z79.01 Long term (current) use of anticoagulants; Z87.891 Personal history of nicotine dependence
CPT/HCPCS: J1815

== ENCOUNTER 2020-06-12 06:42 | Outpatient (CLI) | payer MEDICARE, BC ==
[~2020-06-12] VITALS: Ht 182.9 cm; Wt 94.1 kg
[~2020-06-12 06:42] MED LIST changes: +BIOTIN5000 MCG PO; +BYSTOLIC10 MG PO; +CARDIZEM LA180 MG PO; +DEMADEX10 MG PO; +FOLIC ACID 11 MG/TA1 PO; +PLAVIX 75MG TAB75 MG PO; +PROAIR HFA0.09 MG/AC IH; +PROTONIX 40MG T40 MG PO; +SLO-NIACIN500 MG PO; +SODIUM BICARBO650 MG PO; +VITAMIN C500 MG PO
[2020-06-12 07:40] LABS: HEMOGLOBIN 10.7 g/dl (13.5-18.0); MEAN CELL VOLUME 110 fl (80.0-100.0); MEAN CORPUSCULAR HEMOGLOBIN 36 pg (27.0-31.0); MEAN CORPUSCULAR HGB CONC 32 g/dl (33.0-37.0); MEAN PLATELET VOLUME 10.8 fl (7.4-10.4); PLATELET COUNT 160 K/mm3 (130-400); RED BLOOD COUNT 3.01 M/mm3 (4.20-5.60); REDCELL DISTRIBUTION WIDTH-CV 17.3 % (11.5-14.5)
[2020-06-12 07:41] LABS: HEMATOCRIT 33.2 % (42.0-52.0)
[2020-06-12 07:47] VITALS: BP 161/72; PULSE 99; TEMP 98.5
--- NOTE | 2020-06-12 07:58 | NUR ---
PATIENT SITTING IN RECLINER PER PATIENT REQUEST. CALL LIGHT IN REACH
[2020-06-12] MEDS ORDERED: DEMADEX10 MG PO (08:09)
[2020-06-12] MEDS ORDERED: ELIQUIS 2.5 PO (08:14)
[2020-06-12] MEDS ORDERED: OFEV150 MG PO (08:15)
[2020-06-12] MEDS ORDERED: INDOCIN50 MG PO (08:16)
[2020-06-12] MEDS ORDERED: SODIUM BICARBO650 MG PO (08:18)
[2020-06-12 08:23] LABS: BAND 2 % (0-10); EOSINOPHIL 5 % (0-4); LYMPHOCYTE 14 % (20.0-51.0); METAMYELOCYTE 2 % (0-0); NEUTROPHILS 73 % (42.0-75.2); PLATELET ESTIMATE NORMAL (NORMAL)
[2020-06-12 08:24] LABS: ANISOCYTOSIS 2+
[2020-06-12 09:35] VITALS: BP 134/61; PULSE 81; TEMP 98.9
--- NOTE | 2020-06-12 09:35 | NUR ---
TO RM 8 PER CART FROM PACU FOLLOWING A BONE MARROW BX. ALERT ORIENTED X 3, TALKING TO STAFF. DENIES PAIN OR DISCOMFORT. RESPIRATIONS UNLABORED. RECEIVED DIET PEPSI
[2020-06-12 09:50] VITALS: BP 131/60; PULSE 77
--- NOTE | 2020-06-12 09:50 | NUR ---
STATED HE WAS GOING TO DRINK DIET PEPSI ON THE WAY HOME.
--- NOTE | 2020-06-12 10:05 | NUR ---
RECEIVED DISCHARGE INSTRUCTIONS AND VERBALIZED UNDERSTANDING. DISCONTINUED IV AND INT- CATHETER INTACT PATIENT UP AND AMBULATED TO BATHROOM. CALLED TO HOUSEKEEPING ASSISTANT PATIENT. PATIENT GETTING DRESSED
[2020-06-12 10:21] VITALS: BP 134/61; PULSE 83
--- NOTE | 2020-06-12 10:25 | NUR ---
DISCHARGED PER WC BY NURSING STAFF TO PRIVATE CAR IN CARE OF JENNY.
== END 2020-06-12 10:54 | disposition home or self-care (01) ==
LOC: SDCO 06:42
PROVIDERS: Internal Medicine
DX: D69.6 Thrombocytopenia, unspecified (principal); Z20.828 Contact with and (suspected) exposure to other viral communicable diseases
CPT/HCPCS: J2704; J3010; J7030

== ENCOUNTER 2020-10-28 16:25 | Inpatient (IN) | payer MEDICARE, BC ==
[~2020-10-28] VITALS: Ht 182.9 cm; Wt 79.6 kg
[~2020-10-28 16:25] MED LIST changes: +AMARYL4 MG PO; +ELIQUIS 2.5 PO; +NORCO 325 MG-7.1 TAB PO; +ROXICODONE 55 MG/TAB PO; +TAZTIA180 PO
[2020-10-28 19:31] VITALS: BP 155/67; PULSE 80; TEMP 97.9
--- NOTE | 2020-10-29 02:58 | NUR ---
PT TO RM 335 JUST PRIOR TO THE START OF THIS SHIFT FOR INPT REHAB. ALERT AND ORIENTATED. LEFT BKA WITH BONI WRAP CLEAN, DRY AND INTACT. USES O2 PER NC HE FEELS THE NEED. O2 AT 2L/NC WHEN USING. AT PRESENT IS ON ROOM AIR WITH SATS AT 94-95%. UP IN CHAIR WATCHING TV. BLOOD SUGAR AT 2100 192 AND WAS GIVEN 2UNITS PER SS MILD. REQUEST AND GIVEN ANNIKA 5MG FOR LLE DISCOMFORT AT 4/10. CALL LIGHT WITHIN REACH. K-PAD GIVEN PER REQUEST FOR WARMTH TO UPPER LEFT LEG.
[2020-10-29 05:50] VITALS: BP 145/60; PULSE 71; TEMP 97.7
--- NOTE | 2020-10-29 07:05 | NUR ---
PT IS SITTING IN BEDSIDE RECLINER. HE HAS C/O PAIN IN THE LEFT LEG WHERE HE HAD A LEFT BELOW KNEE AMPUTATION. HE STATES THAT HE HAS DIFFICULTY GETTING COMFORTABLE. PT IS VERY CONCERNED ABOUT HIS O2 SATURATION. HE STATES "WHILE I WAS IN MY OTHER ROOM (351) I SATURATED 96-98%, NOW IN THIS ROOM, I AM ONLY SATURATING 92-94%. I THOUGHT I'D LET YOU KNOW BECAUSE I WANT TO MAKE SURE THERE IS NOTHING TO BE CONCERNED ABOUT." THIS RN DISCUSSED WITH PT THAT WE LIKE TO SEE SATURATIONS ABOVE 92%, AND DON'T GET TERRIBLY CONCERNED UNTIL IT DROPS BELOW THAT POINT. THE PATIENT SEEMS TO UNDERSTAND THE CONVERSATION, HOWEVER, THIS HAS BEEN SOMETHING THE PATIENT CONSULTS WITH EACH NEW NURSE THAT TAKES CARE OF HIM. THERE ARE NO CONCERNS AT THIS TIME. PT VSS, AND LUNG SOUNDS ARE CLEAR IN ALL LOBES. PT IS A&OX4. PT DOES CALL FOR ASSISTANCE WITH CALL LIGHT THAT IS WITHIN REACH.
--- NOTE | 2020-10-29 14:02 | NUR ---
SW met with patient to complete intake. Patient states that he lives in [place] with his Ni [phone]. Patient states that he does utilize crutches, and a walker at this time. He also stated that he previously was independent with ADL's, but is not sure that will be so when he returns home. Patient states that his PCP is Dr. Peterson, pharmacy is [facility], and that he is able to afford his medications at this time. Patient provides that [facility] should have a file of his DPOA-HC listed due to him recently being here. DPOA-HC is his . Patient states that he does not utilize any HH services at this time and plans to return back to his home upon DC. SW will continue to follow.
--- NOTE | 2020-10-29 15:02 | NUR ---
PT SITTING IN RECLINER NAPPING AT THIS TIME. NO CONCERNS. CALL LIGHT WITHIN REACH. DOOR OPEN, AND PT SITTING IN SIGHT.
[2020-10-29 16:46] VITALS: BP 147/64; PULSE 75; TEMP 97.9
--- NOTE | 2020-10-29 18:38 | NUR ---
PT HAS HAD UNEVENTFUL DAY. REMAINED IN HIS RECLINER THE MAJORITY OF THE DAY. HAS ONLY COMPLAINED OF SOME PAIN IN HIS LEG, AND SOME PHANTOM PAINS. NO OTHER CONCERNS FOR THE DAY. WILL REPORT TO DRY SANDER RN.
--- NOTE | 2020-10-29 23:57 | NUR ---
PATIENT SITTING IN CHAIR WATCHING TV. PATIENT SAID HE DID NOT WANT TO TAKE HIS NIACIN ANYMORE. REQUESTED A PAIN PILL WHEN IT WAS TIME WITH 5/10 PAIN.
--- NOTE | 2020-10-30 05:12 | NUR ---
PATIENT COMPLAINING OF PAIN. WILL GIVE NORCO PER ORDERS.
[2020-10-30 06:00] VITALS: BP 130/50; PULSE 78; TEMP 97.4
[2020-10-30 06:18] LABS: BASO % 0.3 % (0.0-2.0); EOS # 0.6 (0.0-0.7); EOS % 5.2 % (0-4.0); GRAN # 8.1 (1.4-6.5); GRAN % 69.1 % (42.2-75.2); LYMPH # 2.2 (1.2-3.4); LYMPH % 18.3 % (20.0-51.0); MEAN CELL VOLUME 105 fl (80.0-100.0); MEAN CORPUSCULAR HGB CONC 31 g/dl (33.0-37.0); MEAN PLATELET VOLUME 11.6 fl (7.4-10.4); MONO # 0.8 (0.1-0.6); MONO % 6.8 % (1.7-9.3); PLATELET COUNT 176 K/mm3 (130-400); RED BLOOD COUNT 2.77 M/mm3 (4.20-5.60); REDCELL DISTRIBUTION WIDTH-CV 15.7 % (11.5-14.5)
[2020-10-30 06:27] LABS: CALCIUM 8.1 mg/dL (8.4-10.2); CREATININE, serum 1.83 (0.66-1.25); POTASSIUM 3.9 mmol/L (3.4-5.0)
[2020-10-30 06:31] LABS: HEMATOCRIT 29.2 % (42.0-52.0); MEAN CORPUSCULAR HEMOGLOBIN 32 pg (27.0-31.0)
[2020-10-30 07:03] LABS: MAGNESIUM 0.7 mg/dL (1.6-2.3)
--- NOTE | 2020-10-30 07:03 | NUR ---
Received critical value call from Lab - Mg 0.7. Debbie Brunson RN notified at this time.
--- NOTE | 2020-10-30 07:19 | NUR ---
PT RESTING IN RECLINER AT BEDSIDE SHIFT REPORT. CRITICAL MAGNESIUM CALLED TO DR. SMITH WITH NO ANSWER MESSAGE LEFT. CALLED TO DR. GODINEZ AND ORDERS FOR 4G IV NOW AND 400 BID.
--- NOTE | 2020-10-30 08:56 | NUR ---
Follow-up; Patient thanked for looking in on him and wishing him well.
[2020-10-30 17:54] VITALS: BP 148/73; PULSE 81; TEMP 97.6
--- NOTE | 2020-10-30 19:00 | NUR ---
RECEIVED CHANGE OF SHIFT REPORT FROM DAY SHIFT NURSE.
--- NOTE | 2020-10-30 19:34 | NUR ---
PT REPORTS 4.5/10 PAIN ON ALL ASSESSMENTS TODAY. RECEIEVES PRN NORCO Q 6 HOURS. ZINC ORDERED FOR DEVELOPEMENT OF S2 PRESSURE INJURY TO COCCYX, EGG CRATE IN USE AND FREQUENT REPOSITIONING ENCOURAGED. PT PREFERS TO SLEEP IN RECLINER TO KEEP LBKA STUMP STRAIGHTER.
[2020-10-31 05:58] VITALS: BP 128/60; PULSE 78; TEMP 97.4
--- NOTE | 2020-10-31 07:03 | NUR ---
PT RESTING IN RECLINER AT BEDSIDE SHIFT REPORT. PT SLEPT HERE LAST NIGHT, IS MORE COMFORTABLE HERE, WILL RECEIVE PRN NORCO PRIOR TO THERAPY THIS AM.
--- NOTE | 2020-10-31 07:15 | NUR ---
CHANGE OF SHIFT REPORT GIVEN TO DAY SHIFT NURSEZELALEM.
--- NOTE | 2020-10-31 09:50 | NUR ---
Follow-up; Patient and Fur Trimmer reminised about their high school days that they spent together. Fur Trimmer will continue to follow up.
--- NOTE | 2020-10-31 13:12 | NUR ---
Admission QIM scores were reviewed by the team. Code of 3 chosen for toilet hygiene was determined by team discussion to be the most usual performance for this patient during the assessment period. Code of 88 chosen for toileting transfers was determined by team discussion to be the most usual performance for this patient during the assessment period. Code of 2 for sit to stand was determined by team discussion to be the most usual performance for this patient during the assessment period. Code of 2 for chair/bed to chair transfers was determined by team discussion to be the most usual performance for this patient during the assessment period.--Ely Dill, PD
[2020-10-31 17:52] VITALS: BP 145/58; PULSE 83; TEMP 97.4
--- NOTE | 2020-10-31 18:26 | NUR ---
PT RECEIEVED NORCO X2 TODAY, THIS AM AND THIS CARLI. PT TRANSFERRING WELL TO TOILET. APPLIED COMPRESSION TO RLE FOR EDEMA, ENCOURAGED TO ELEVATE BUT PT DISLIKES. PT RESTING IN RECLINER.
--- NOTE | 2020-10-31 18:55 | NUR ---
RECEIVED CHANGE OF SHIFT REPORT FROM DAY SHIFT NURSE.
[2020-11-01 05:43] VITALS: BP 139/79; PULSE 79; TEMP 97.1
[2020-11-01 06:42] LABS: BASO % 0.3 % (0.0-2.0); EOS # 0.5 (0.0-0.7); EOS % 4.5 % (0-4.0); GRAN # 8.2 (1.4-6.5); GRAN % 75.5 % (42.2-75.2); LYMPH # 1.3 (1.2-3.4); LYMPH % 12.4 % (20.0-51.0); MEAN CELL VOLUME 105 fl (80.0-100.0); MEAN CORPUSCULAR HGB CONC 31 g/dl (33.0-37.0); MEAN PLATELET VOLUME 11.4 fl (7.4-10.4); MONO # 0.8 (0.1-0.6); PLATELET COUNT 184 K/mm3 (130-400); RED BLOOD COUNT 2.68 M/mm3 (4.20-5.60); REDCELL DISTRIBUTION WIDTH-CV 15.9 % (11.5-14.5)
[2020-11-01 06:45] LABS: HEMATOCRIT 28.2 % (42.0-52.0); HEMOGLOBIN 8.8 g/dl (13.5-18.0); MEAN CORPUSCULAR HEMOGLOBIN 33 pg (27.0-31.0)
[2020-11-01 06:58] LABS: CALCIUM 8.8 mg/dL (8.4-10.2); CREATININE, serum 1.75 (0.66-1.25); MAGNESIUM 1.7 mg/dL (1.6-2.3); POTASSIUM 3.6 mmol/L (3.4-5.0)
--- NOTE | 2020-11-01 07:39 | NUR ---
CHANGE OF SHIFT REPORT GIVEN TO DAY SHIFT NURSENICOLÁS.
--- NOTE | 2020-11-01 09:15 | NUR ---
Follow-up; Motor Mechanic left card with prayer of hope for patient and offered God's blessings.
--- NOTE | 2020-11-01 10:16 | NUR ---
PATIENT REQUESTING PAIN MEDICATION AT THIS TIME. NOTIFIED THAT IT IS TOO SOON FOR PAIN MEDICATION. VERBAL ORDER TO GIVE NEXT AVAILABLE DOSE OF PAIN MEDICATION NOW FROM TO THIS NURSE.
--- NOTE | 2020-11-01 14:06 | NUR ---
Employment Programs Analyst met with the patient to present the Team Conference Note. The patient's tentative discharge is on Friday 11/09. The team is recommending the patient have a wheelchair, a toilet riser with arms, and home health services. SW provided a list of agencies. The patient inquired about having a home evaluation and he had questions for OT regarding the toilet riser. MAGALYS collaborated the above information with OT and Ely [facility] Director.
[2020-11-01 17:45] VITALS: BP 135/46; PULSE 66; TEMP 97.4
--- NOTE | 2020-11-01 18:44 | NUR ---
PATIENT HAS HAD DIFFICULITES IN CONTROLLING HIS PAIN THROUGHOUT THE SHIFT. PRN PAIN MEDICATIONS ADMINISTERED NEEDED. WILL REPORT OFF TO ONCOMING NURSE.
--- NOTE | 2020-11-01 21:00 | NUR ---
PT SITTING UP IN RECLINER. PT REPORTS HE SLEEPS IN RECLINER. ENC BED LATER TO TAKE PRESSURE OFF BUTTOCK- STAGE 2 WOUND. ENC ELEVATION OF BLE- "NOT NOW'. FOUND A BAG FULL OF TWINKIES PT'S BROUGHT IN. OFFERED ADA HS SNACK. DECLINED. HAS FOOT SUPPORT BOOT ON RT FOOT. CALL LIGHT IN REACH. CHAIR ALARM SET.
[2020-11-02 05:39] VITALS: BP 130/53; PULSE 73; TEMP 97.5
--- NOTE | 2020-11-02 11:13 | NUR ---
Patient resting in recliner, call light in reach. Reporting pain level of 4/10 and given prn pain meds. Will continue to monitor.
--- NOTE | 2020-11-02 12:56 | NUR ---
Call placed to [facility] and left message to have them call us back regarding getting a talent acquisition specialist for patient LBKA. Awaiting a return call.
[2020-11-02 15:14] VITALS: BP 122/62; PULSE 75; TEMP 97.2
--- NOTE | 2020-11-02 15:29 | NUR ---
Drywall Finisher met with the patient's , Ni in the ED lobby. She brought the patient clean clothes and a camera with picture of their home for staff to assess his home environment. SW discussed the family meeting. She was agreeable to a meeting on Tuesday 11/06 at 1315. The best phone number is #[phone]. If she does not answer contact her on her cell phone # [phone]. MAGALYS collaborated the above information with Ely, IPR Director.
--- NOTE | 2020-11-02 20:30 | NUR ---
PT UP TO BR. HAD LARGE LOOSE BROWN/BLOOD STOOL. ELIQUIS DOSEAGE CHANGED ON DAYSHI. ASSISTED TO RECLINER. ENC ELEVATION OF BLE. REFUSED. VERY OBCESSED IN O2 SAT WITH "CALIBRATION" OF HIS OXIMETRY WITH THE [facility] OXIMETRY.BOTH READ 98-99% ON 4L O2.
[2020-11-03 06:13] VITALS: BP 159/53; PULSE 72; TEMP 98.1
--- NOTE | 2020-11-03 06:41 | NUR ---
PT SLEPT IN RECLINER THROUGH THE NIGHT. WANTS PAIN MED PRIOR TO THERAPY THIS AM.
--- NOTE | 2020-11-03 13:54 | NUR ---
Dressing change to right stump. Top of stump is red and has some edema, but was not warm. No drainage observed with incision. Applied xeroform over incision, 4x4's, kerlix and secured with nazario wrap. Patient tolerated well. Patient was educated on the need to elevate the leg over his heart, but patient has been non compliant with this since he arrived to [facility]. He will place it on a pillow, but does not keep it elevated high enough to make a difference. Will continue to monitor.
[2020-11-03 16:49] VITALS: BP 114/56; PULSE 71; TEMP 97.5
--- NOTE | 2020-11-03 17:06 | NUR ---
The stool this afternoon has blood in it, but not throughout the stool. Almost as if the bleeding occured after he had his stool. Will Continue to monitor.
[2020-11-03 19:38] VITALS: BP 130/52; PULSE 71; TEMP 97.8
--- NOTE | 2020-11-03 20:43 | NUR ---
PT SITTING IN CHAIR. READING AND WATCHING TV. DENIES ANY NEEDS AT THIS TIME. CALL LIGHT IN REACH.
--- NOTE | 2020-11-03 22:30 | NUR ---
PT REMAINS UP IN CHAIR. LEFT LEG WITH BKA. BONI WRAP INTACT. RATES PAIN 4-5/10. BSS 157 WITH 2 UNITS NOVOLOG GIVEN IN UPPER RIGHT ARM. HEATING PAD ACROSS ABDOMEN.
[2020-11-03 23:57] VITALS: BP 105/53; PULSE 64; TEMP 97.4
--- NOTE | 2020-11-04 02:09 | NUR ---
PT READY FOR SLEEP, REQUEST LIGHTS OUT. URINAL EMPTIED WITH CLEAR, YELLOW URINE. HEATING PAD ACROSS LAP. CALL LIGHT IN REACH. DENIES ANY OTHER NEEDS.
[2020-11-04 05:46] VITALS: BP 113/54; PULSE 64; TEMP 97.4
--- NOTE | 2020-11-04 05:47 | NUR ---
PT CALLS FOR MED FOR PAIN. NORCO 7.5 GIVEN FOR LLE PAIN RATED 5.5/10. VS MONITORED. SATS BETWEEN 87-89%. PT PUT HIS O2 ON AT 2L/NC AND SATS UP TO 98-99%. SITTING IN CHAIR BUT REFUSES NURSE TO ELEVATE LEGS. ENCOURAGED HIM TO RAISE THE FEET SOON THE MED BEGINS TO WORK. WILL CONTINUE TO MONITOR SATS AND PAIN. CALL LIGHT IN REACH
--- NOTE | 2020-11-04 07:16 | NUR ---
PT SLEEPING IN RECLINER AT BEDSIDE SHIFT REPORT. REFUSES TO PUT LEGS UP AND SLUMPS OVER IN CHAIR. REFUSES TO MOVE TO BED WELL. PT C/O MORE PAIN LAST NIGHT, IS VERY UNCOMFORTABLE FOR PT TO STRAIGHTEN OUT LEG.
--- NOTE | 2020-11-04 11:15 | NUR ---
LBKA STUMP ASSESSED TODAY. BONI DRSG TAKEN DOWN, NO DRAINAGE NOTED ON KERLIX SO BONI BANDAGE REWRAPPED. PT C/O PAIN WHEN STRAIGHTENING KNEE, UNABLE TO TOLERATE IT FOR LONG AND UNABLE TO STRAIGHTEN MORE THEN 30 DEGREES. PT ENCOURAGED BY NIGHT NURSE TO GET LEGS UP WHILE SLEEPING AND PT REFUSED.
--- NOTE | 2020-11-04 14:16 | NUR ---
SPOKE WITH PT'S ABOUT PT'S AFFECT BEING MORE FLAT AND PT SEEMING MORE ANXIOUS/AGITATED. ENCOURAGED PT TO CALL HIS AND JUST TALK WITH HER INSTEAD OF TRYING TO FIGURE THINGS OUT RIGHT NOW. PT DID NOT SEEM RECEPTIVE TO MY ATTEMPTS AT CALMING HIM.
[2020-11-04 16:27] VITALS: BP 110/54; PULSE 63; TEMP 97.3
--- NOTE | 2020-11-04 18:46 | NUR ---
PT RECEIVED PRN NORCO ONCE THIS SHIFT, NOTED BY THIS NURSE AND NIGHT NURSE THAT PT SEEMS MORE FORGETFULL THEN WHEN HE WAS FIRST TRANSFERRED TO [facility]. PT SEEMS MORE ANXIOUS AND POSSIBLY DEPRESSED, HE FEELS LIKE HE HAS A LOT OF PREPARATIONS TO MAKE PRIOR TO BEING DISCHARGED HOME. HIS BIGGEST CONCERN IS WHEELCHAIRS AND ACCESSIBILITY IN HIS HOUSE. PT STATES HE NEEDS THREE DIFFERENT WC FOR THE THREE LEVELS OF HIS HOME. SW NOTIFIED TODAY AND IS WAITING UNTIL FAMILY MEETING ON FRIDAY.
--- NOTE | 2020-11-04 19:37 | NUR ---
PT SITTING IN CHAIR. DENIES ANY NEEDS AT THIS TIME. CALL LIGHT IN REACH.
[2020-11-05 03:15] VITALS: BP 131/55; PULSE 70; TEMP 97.5
--- NOTE | 2020-11-05 08:13 | NUR ---
PT VERY IN TUNED WITH THE HEIGHTS AND SIZES OF ALL THE EQUIPMENT HE NEEDS WHEN HE IS DISMISSED. USES O2 PER NC AT 4L WHEN UP GOING TO THE BR. HE DOES DROP TO THE UPPER 80'S FOR A SHORT TIME. SITS IN CHAIR ALL NIGHT. STATES HE PUTS HIS FEET UP BUT THIS NURSE HAS NOT SEEN HIM. SLEEPS AT INTERVALS DURING THE NIGHT. TAKES MEDICATION WITH NO PROBLEMS. ACCU CHECKS ACHS AND AT HS WAS 209 AND 62 AT O600. CALL LIGHT IN REACH.
--- NOTE | 2020-11-05 08:18 | NUR ---
Patient resting in recliner, call light in reach and denies any questions. is changing out dressing to stump at this time. She reports that she will be leaving stitches in for about 3 weeks, and is okay with the redness at the end of the distump. No drainage observed to incision. Dressed with xeroform, 4x4's, kerlix and secured with nazario bandage. Will continue to monitor.
--- NOTE | 2020-11-05 10:49 | NUR ---
Patient resting in recliner at this time sleeping.
[2020-11-05 17:41] VITALS: BP 144/60; PULSE 70; TEMP 97.7
--- NOTE | 2020-11-05 21:00 | NUR ---
PT SLEEPS IN RECLINER WITH LEGS DOWN PER GRAVITY. ENC TO ELEVATE. ACCUCHECK 223 TONIGHT. PT REPORTED HAD OJ EARLIER. PT NOT READY FOR PAIN MED YET.
[2020-11-06 05:41] VITALS: BP 156/53; PULSE 72; TEMP 97.4
--- NOTE | 2020-11-06 06:54 | NUR ---
PT RESTING IN RECLINER AT BEDSIDE SHIFT REPORT.
[2020-11-06 08:02] LABS: BASO % 0.3 % (0.0-2.0); EOS # 0.5 (0.0-0.7); EOS % 5.6 % (0-4.0); GRAN # 6.3 (1.4-6.5); GRAN % 69.7 % (42.2-75.2); LYMPH # 1.4 (1.2-3.4); LYMPH % 15.3 % (20.0-51.0); MEAN CELL VOLUME 106 fl (80.0-100.0); MEAN CORPUSCULAR HGB CONC 31 g/dl (33.0-37.0); MEAN PLATELET VOLUME 11.9 fl (7.4-10.4); MONO # 0.8 (0.1-0.6); MONO % 8.8 % (1.7-9.3); PLATELET COUNT 240 K/mm3 (130-400); RED BLOOD COUNT 2.58 M/mm3 (4.20-5.60); REDCELL DISTRIBUTION WIDTH-CV 16.4 % (11.5-14.5)
[2020-11-06 08:03] LABS: CALCIUM 8.9 mg/dL (8.4-10.2); CREATININE, serum 1.66 (0.66-1.25); MAGNESIUM 1.6 mg/dL (1.6-2.3); POTASSIUM 4.2 mmol/L (3.4-5.0)
[2020-11-06 08:06] LABS: HEMATOCRIT 27.3 % (42.0-52.0); HEMOGLOBIN 8.4 g/dl (13.5-18.0); MEAN CORPUSCULAR HEMOGLOBIN 33 pg (27.0-31.0)
--- NOTE | 2020-11-06 14:15 | NUR ---
Follow-up visit; Patient thanked for looking in on him.
--- NOTE | 2020-11-06 14:51 | NUR ---
PT FITTED FOR STUMP OENOLOGIST FROM [facility] TODAY 11/06. THIS NURSE WAS THERE TO WATCH PLACEMENT. PT TOLERATED WELL.
--- NOTE | 2020-11-06 15:19 | NUR ---
MAGALYS attended a patient/family conference call. The patient's , Ni, was on speaker phone. Also present was IPR Director, PT, and OT. IPR Director started by explaining the purpose of the meeting. PT/OT then discussed the patient's progress so far. The team reviewed the plan for a discharge this , 11/09, with home health PT/OT and equipment needs. The patient and his are agreeable to the d/c plan, but Ni requests discharge on Friday. She states that she has a young man helping her that can assist them on Friday, but not . The team informed the patient and Ni that they would discuss this. The team answered all questions. SW then followed up with the patient and provided him with Medicare.gov's list of home health agencies that serve [place]. The patient states that he would like some time to look over the list and discuss the options with his . The patient states that he would like to try and get his 18 inch wheelchair from [facility] in [place]. He would like to see if [facility] can deliver the wheelchair to his home. MAGALYS contacted and faxed the wheelchair order to Patience at [facility]. Patience reports that if they do not have the 18 inch wheelchair, then they can order it and have it in the next day. MAGALYS notified her of the patient's d/c date and how the patient would like the wheelchair delivered to his home. SW to continue to follow. [facility]#[phone] fax#[phone]
--- NOTE | 2020-11-06 16:06 | NUR ---
MAGALYS received a phone call from Christina at [facility]. Christina reports that the patient's reached out to her and wants to get home health set up through them. Christina states that they already scheduled a time for start of care. MAGALYS faxed a referral to Christina at [facility].
[2020-11-06 16:24] VITALS: BP 103/62; BP 166/58; PULSE 50; PULSE 77; TEMP 97.6; TEMP 98.5
--- NOTE | 2020-11-06 18:38 | NUR ---
PT MADE MOD-I PER THERAPY TODAY. PT REQUESTS BEING OBSERVED TO BATHROOM THIS CARLI TO MAKE SURE HE TRANSFERS SAFELY, WHICH HE DID. PT CONTINUES TO HAVE A LOT OF ANXIETY ABOUT DISCHARGE ON FRIDAY. WILL CONSULT WITH CARDIOLOGY IN THE AM PER DR. GODINEZ ORDER. PT RECIEVED KRISHNA STACY ONCE THIS AFTERNOON.
--- NOTE | 2020-11-06 20:00 | NUR ---
MOD I PIVOT TRANSFER TO WITH WHEELED WALKER IN ROOM. VOIDS YELLOW CLEAR URINE PER URINAL. CALL LIGHT IN REACH. REPLACED LEAKING KPAD. PT RELATES ONLINE ORDERING HOME SUPPLIES. VERY ORGANIZED.
[2020-11-07 05:32] VITALS: BP 117/79; BP 177/69; PULSE 77; PULSE 92; TEMP 97.4
[2020-11-07 08:44] VITALS: BP 151/65; PULSE 81
--- NOTE | 2020-11-07 10:54 | NUR ---
The patient's has chosen to pursue with d/c on . SW contacted the patient's , Ni, and confirmed this. Ni reports that there is suppose to be more bad weather on Friday and she would rather come get him on . Ely, IPR Director, has been updated. MAGALYS then contacted Patience at [facility] to notify of d/c date and follow up on whether they received the order. Patience reports that she received some of the notes, but did not get the script. MAGALYS refaxed the script to [facility].
--- NOTE | 2020-11-07 11:15 | NUR ---
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 Some redness and swelling observed to the end of the stump. No drainage observed to incision. Area was redressed with xeroform, 4x4 gauze, kerlix and secured with nazario wrap and then foreign agent. Patient denies any questions at this time.
--- NOTE | 2020-11-07 13:47 | NUR ---
Donna, at [facility], reports that they received the wheelchair order and will get in contact with the patient and family to deliver the wheelchair. Donna requests that the need for a wheelchair be documented in the patient's d/c summary.
[2020-11-07 18:00] VITALS: BP 143/57; PULSE 77; TEMP 97.3
--- NOTE | 2020-11-07 19:39 | NUR ---
PT SITTING IN CHAIR. IS INDEPENDENT IN ROOM. CALL LIGHT IN REACH.
[2020-11-07 21:26] VITALS: BP 112/53; PULSE 76; TEMP 97.3
[2020-11-08] VITALS: BP 139/71; PULSE 74; TEMP 97.5
[2020-11-08 04:00] VITALS: BP 141/70; PULSE 78; TEMP 98.5
[2020-11-08 07:03] LABS: BASO % 0.3 % (0.0-2.0); EOS # 0.5 (0.0-0.7); EOS % 4.2 % (0-4.0); GRAN # 9.7 (1.4-6.5); GRAN % 77.5 % (42.2-75.2); LYMPH # 1.4 (1.2-3.4); LYMPH % 10.8 % (20.0-51.0); MEAN CELL VOLUME 108 fl (80.0-100.0); MEAN CORPUSCULAR HGB CONC 30 g/dl (33.0-37.0); MEAN PLATELET VOLUME 11.7 fl (7.4-10.4); MONO # 0.9 (0.1-0.6); MONO % 6.9 % (1.7-9.3); PLATELET COUNT 260 K/mm3 (130-400); RED BLOOD COUNT 2.75 M/mm3 (4.20-5.60); REDCELL DISTRIBUTION WIDTH-CV 17.2 % (11.5-14.5)
[2020-11-08 07:05] LABS: HEMATOCRIT 29.8 % (42.0-52.0); MEAN CORPUSCULAR HEMOGLOBIN 33 pg (27.0-31.0)
[2020-11-08 07:14] LABS: CALCIUM 9.3 mg/dL (8.4-10.2); CREATININE, serum 1.47 (0.66-1.25); MAGNESIUM 1.4 mg/dL (1.6-2.3)
[2020-11-08 07:16] LABS: IRON,SERUM 92 ug/dL (35-150)
[2020-11-08 07:25] LABS: TOTAL IRON BINDING CAPACITY 232 ug/dL (261-462)
--- NOTE | 2020-11-08 07:45 | NUR ---
SITS IN CHAIR ALL NIGHT. INDEPENDENT IN ROOM. VS MONITORED EVERY 4 HOURS D/T PT HAVING TELE ON. RIGHT FOOT STILL VERY EDEMATOUS. R WRIST WITH INT. CALL LIGHT IN REACH.
[2020-11-08 09:03] VITALS: BP 147/69; PULSE 82; TEMP 97.8
[2020-11-08 09:19] LABS: RETIC # 0.1 M/mm3 (0.02-0.16); RETIC % 3.8 % (0.5-3.52)
--- NOTE | 2020-11-08 10:59 | NUR ---
The patient's , Ni, contacted to inform that [facility] delivered the wheelchair to their home today.
--- NOTE | 2020-11-08 16:32 | NUR ---
Spinning Frame Changer met with the patient to present the Team Conference note, to discuss discharge, and to present the IM form. SW answered his questions. The patient has all or will have all the equipment that is needed to be purchased by him either this day or tomorrow. The patient is agreeable to a tentative discharge on 11/[address] [facility]. SW presented the IM form the patient understood and signed the form. A copy was provided for the patient and the original was placed in the chart.
[2020-11-08 16:36] VITALS: BP 134/60; PULSE 66; TEMP 98
--- NOTE | 2020-11-08 17:48 | NUR ---
Patient attended all therapies today. He didn't start his first therapy today until 10 AM and he was able to make some personal calls and order supplies he would need upon discharge. Patient tolerating diet well. This nurse made calls to set up follow up appointments upon patient's discharge. Patient currently resting in recliner, call light in reach and is independent in his room.
--- NOTE | 2020-11-08 19:55 | NUR ---
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 No drainage observed, just redness and swelling, is aware. New dressing was applied and patient did assist this nurse, but was mainly just documenting what he needed to do. He said that his could assist him with the dressing changes. Patient denied questions.
--- NOTE | 2020-11-08 20:00 | NUR ---
Patient sitting up in chair. Complaining of 6/10 pain. Administered oxycodone per orders.
[2020-11-09 00:24] VITALS: BP 141/58; PULSE 79; TEMP 97.7
[2020-11-09 05:01] VITALS: BP 146/51; PULSE 81; TEMP 98.8
--- NOTE | 2020-11-09 06:59 | NUR ---
PT RESTING IN RECLINER AT BEDSIDE SHIFT REPORT. DOG LICENSER MOLD TECHNICIAN HELPED EMPTY URINAL AND PT SEEMS IN HIGH SPIRITS ABOUT DISCHARGE LATER TODAY. CALL LIGHT WITHIN REACH, PT MOD-I IN ROOM.
[2020-11-09] MEDS ORDERED: LIPITOR 40MG TA40 MG PO (09:53)
[2020-11-09] MEDS ORDERED: TYLENOL 325MG325 MG PO (09:54)
[2020-11-09] MEDS ORDERED: ASPIRIN E.C. 8181 MG PO (09:54)
[2020-11-09] MEDS ORDERED: ZINC OXIDE 28GM TOP (09:56)
[2020-11-09] MEDS ORDERED: BIOTENE MOIST44.3 ML PO (09:57)
[2020-11-09] MEDS ORDERED: NORCO 325 MG-7.1 TAB PO (09:58)
[2020-11-09] MEDS ORDERED: MAG-OX 400400 MG/TAB PO (10:00)
[2020-11-09] MEDS ORDERED: PROTONIX 40MG T40 MG PO (10:00)
--- NOTE | 2020-11-09 10:21 | NUR ---
The patient is to discharge back home with his today, 11/09, with home health services for mcc/PT/OT from [facility]. MAGALYS notified and faxed d/c orders to Darshan at [facility]. No additional needs at this time.
--- NOTE | 2020-11-09 13:52 | NUR ---
PT RECEIEVED KRISHNA STACY PRIOR TO DISCHARGE AT 1340. PT HEALTH SUMMARY, DISCHARGE SUMMARY, AND HOME MEDS PRINTED AND REVIEWED WITH PT AND . STRESSED IMPORTANCE OF FOLLOW UP APPOINTMENTS. REVIEWED MEDICATIONS, CALLED PRESCRIPTIONS FOR MAGNESIUM-OXIDE TO PHARMACY OF CHOICE. BELONGINGS GATHERED BY NURSE INCLUDING PHONE, GRAPE CRUSHER, IPAD ETC. PT TRANSPORTED VIA BY NURSE AND SEATBELTED FOR RIDE HOME. PT AND DENIED QUESTIONS. PHONE NUMBER PROVIDED IF ANY ARISE.
[2020-11-11] MEDS ORDERED: JANUVIA50 MG PO (21:46)
[2020-11-11] MEDS ORDERED: NORVASC 5MG5 MG/TAB PO (21:47)
== END 2020-11-09 13:30 | disposition home health service (06) | DRG 560 ==
PROVIDERS: ADMIT Internal Medicine
DX: Z47.81 Encounter for orthopedic aftercare following surgical amputation (principal); N18.4 Chronic kidney disease, stage 4 (severe); E46 Unspecified protein-calorie malnutrition; N17.9 Acute kidney failure, unspecified; E11.22 Type 2 diabetes mellitus with diabetic chronic kidney disease; E11.319 Type 2 diabetes mellitus with unspecified diabetic retinopathy without macular edema; I65.29 Occlusion and stenosis of unspecified carotid artery; I12.9 Hypertensive chronic kidney disease with stage 1 through stage 4 chronic kidney disease, or unspecified chronic kidney disease; D63.1 Anemia in chronic kidney disease; K76.0 Fatty (change of) liver, not elsewhere classified; M10.9 Gout, unspecified; E87.5 Hyperkalemia; K21.9 Gastro-esophageal reflux disease without esophagitis; J84.10 Pulmonary fibrosis, unspecified; I48.0 Paroxysmal atrial fibrillation; I49.5 Sick sinus syndrome; I25.10 Atherosclerotic heart disease of native coronary artery without angina pectoris; I08.3 Combined rheumatic disorders of mitral, aortic and tricuspid valves; J31.0 Chronic rhinitis; E83.42 Hypomagnesemia; E78.5 Hyperlipidemia, unspecified; Z68.24 Body mass index [BMI] 24.0-24.9, adult; R53.81 Other malaise; Z79.01 Long term (current) use of anticoagulants; Z79.891 Long term (current) use of opiate analgesic; Z95.1 Presence of aortocoronary bypass graft; Z95.5 Presence of coronary angioplasty implant and graft; Z95.818 Presence of other cardiac implants and grafts; Z95.820 Peripheral vascular angioplasty status with implants and grafts
CPT/HCPCS: 99222-AI; 99231-AI; 99232-AI; 99233-AI; 99239; J1815; J2916; J3475

== ENCOUNTER 2021-03-21 16:29 | Inpatient (IN) | payer MEDICARE, BC ==
[~2021-03-21] VITALS: Ht 182.9 cm; Wt 68.7 kg
[~2021-03-21 16:29] MED LIST changes: +AMOXICILLIN 8751 TAB PO; +ASPIRIN E.C. 8181 MG PO; +BIOTENE MOIST44.3 ML PO; +CIPRO 500MG TA500 MG PO; +LIPITOR 40MG TA40 MG PO; +MAG-OX 400400 MG/TAB PO; +SEPTRA DS 8001 TAB PO; +TYLENOL 325MG325 MG PO; +ZESTRIL 20MG TA20 MG PO; +ZINC OXIDE 28GM TOP
--- NOTE | 2021-03-21 18:00 | NUR ---
REPORT RECIEVED FROM [facility] ERIN COOPER. ALL QUESTIONS ANSWERED. PATIENT TO ARRIVE VIA EMS.
--- NOTE | 2021-03-21 18:30 | NUR ---
PATIENT ARRIVED VIA EMS TO ROOM 319. TRANSFERED TO RECLINER WITH ONE ASSIST. PATIENT IS ALERT AND ORIENTED DENIES PAIN OR NAUSEA. PATIENT STATES HE DOES NOT WANT A GOWN AT THIS TIME. IV TO RIGHT AC IN PLACE. AMUPUTATION TO LEFT LOWER LEG. AT BEDSIDE AT THIS TIME. PATIENT COMFORTABLE AT THIS TIME, CALL CEE WITHIN REACH. REPORT TO BE GIVEN TO OVERNIGHT RN. WILL MONITOR.
[2021-03-21 19:00] VITALS: BP 131/55; PULSE 88; TEMP 97.3
--- NOTE | 2021-03-21 19:15 | NUR ---
Received report from [place]. Seen patient sitting in the recliner. Patient's at the bedside. Patient had left below the knee amputation. He says home health goes to their house to change the dressing. Noted to have blister on his RLE. Placed bedside commode near him. Provided with urinal,kleenex and water within his reach. With INT on right forearm. Reviewed all his medications. He states he uses O2 2lpm via NC PRN. He denies pain.
[2021-03-21] MEDS ORDERED: LIPITOR20 MG PO (19:39)
[2021-03-21] MEDS ORDERED: BYSTOLIC10 MG PO (19:41)
[2021-03-21] MEDS ORDERED: BACTRIM DS 8001 TAB PO (19:56)
[2021-03-21] MEDS ORDERED: MAG-OX 400400 MG/TAB PO (20:02)
--- NOTE | 2021-03-21 20:20 | NUR ---
Called Dr. Garcia but no answer. Left a voicemail.
--- NOTE | 2021-03-21 21:30 | NUR ---
Instructed patient regarding stool sample for stool occult. Informed him of NPO after midnight. Patient verbalizes understanding.
[2021-03-21 22:09] LABS: PH 5 (5-8); SQUAMOUS EPITHELIAL None Seen /hpf; URINE APPEARANCE Clear; URINE BACTERIA Rare /hpf; URINE BILIRUBIN Negative (NEGATIVE); URINE BLOOD Negative (NEGATIVE); URINE COLOR Yellow; URINE GLUCOSE Negative (NEGATIVE); URINE KETONE Trace (NEGATIVE); URINE LEUKOCYTE ESTERASE Negative (NEGATIVE); URINE NITRATE Negative (NEGATIVE); URINE PROTEIN(semi-quant) 2+ (NEGATIVE); URINE RBC 0-2 /hpf; URINE UROBILINOGEN Negative (NEGATIVE); URINE WBC 0-2 /hpf
[2021-03-21] MEDS ORDERED: TRIAMCINOLONE A15 GM TP (22:13)
[2021-03-21 22:29] LABS: COLLECTION METHOD CLEAN CATCH
[2021-03-22] VITALS (7 sets, daily range): BP systolic 97–151; BP diastolic 47–66; PULSE 83–106; TEMP 97.3–97.7
[2021-03-22 06:00] LABS: BASO % 0.1 % (0.0-2.0); EOS # 0.1 (0.0-0.7); EOS % 1.9 % (0-4.0); GRAN # 6.2 (1.4-6.5); GRAN % 85.5 % (42.2-75.2); LYMPH # 0.4 (1.2-3.4); LYMPH % 5.6 % (20.0-51.0); MEAN CELL VOLUME 108 fl (80.0-100.0); MEAN CORPUSCULAR HGB CONC 31 g/dl (33.0-37.0); MEAN PLATELET VOLUME 11.4 fl (7.4-10.4); MONO # 0.5 (0.1-0.6); MONO % 6.2 % (1.7-9.3); PLATELET COUNT 113 K/mm3 (130-400); RED BLOOD COUNT 2.36 M/mm3 (4.20-5.60); REDCELL DISTRIBUTION WIDTH-CV 21.3 % (11.5-14.5)
[2021-03-22 06:03] LABS: HEMOGLOBIN 7.9 g/dl (13.5-18.0); MEAN CORPUSCULAR HEMOGLOBIN 33 pg (27.0-31.0)
[2021-03-22 06:04] LABS: HEMATOCRIT 25.5 % (42.0-52.0)
[2021-03-22 06:16] LABS: ALBUMIN 3.8 gm/dL (3.5-5.0); CALCIUM 9.2 mg/dL (8.4-10.2); CREATININE, serum 3.82 (0.66-1.25); PHOSPHOROUS 5.5 mg/dL (2.5-4.5)
--- NOTE | 2021-03-22 06:24 | NUR ---
Informed Dr. Rodriguez regarding GI consult.
--- NOTE | 2021-03-22 10:07 | NUR ---
PT LUIS ENRIQUE, AOX4, CARLOS ENRIQUE DRESSED AND WRAPPED, INSTRUCTIONS ON HOW TO DRESS IT FAXED FROM HOME HEALTH. TOLD PT TO BRING SUPPLIES THAT WE DID NOT HAVE HERE. CURRENTLY NPO FOR POTENTIAL EGD, MEDICATIONS GIVEN WITH SIP OF WATER, HELD ORAL AND SQ DIABETIC MEDICATION. ASSESSMENT PERFORMED, NO OTHER NEEDS.
[2021-03-22 11:46] LABS: IRON,SERUM 47 ug/dL (35-150)
[2021-03-22 11:55] LABS: TOTAL IRON BINDING CAPACITY 295 ug/dL (261-462)
--- NOTE | 2021-03-22 15:02 | NUR ---
DRESSING CHANGED ON LBKA, ZINC CREAM APPLIED TO RLE.
--- NOTE | 2021-03-22 16:44 | NUR ---
Christina with [facility] contacted this Pack Changer regarding the patient's wound care. She states the team at [facility] has been doing specific cares for the patient. Christina faxed wound care instructions for the patient's nurse. MAGALYS gave the instructions to the patient's nurse. The patient is on contact precautions. Pack Changer contacted the patient via room phone to complete intake. The patient lives in [place] with his Ni. She was in the room with the patient. The patient has a walker and wheelchair. He uses oxygen at baseline, usually 2L and sometimes 4L as needed. The patient's PCP is Dr. Peterson. The patient receives medications from [facility] in [place] and via mail [place]. The patient has advanced directives in the EMR. The patient plans to return home with continued home health from [facility]. *Discharge disposition: Home with spouse and [facility]
--- NOTE | 2021-03-22 18:00 | NUR ---
PT PLEASANT, DRESSING CHANGED TODAY, PT IN ROOM, NO OTHER NEEDS, UNEVENTFUL SHIFT
--- NOTE | 2021-03-22 20:30 | NUR ---
Initial shift assessment done- denies pain at this time, Tele on, Has IV fluids of 1/2 NS at 50cc/hr, pleasant, talkative, understands NPO after MN for EGD, states has had some loose stools today, emptied urinal of 300cc stephen clear urine. No requests.
[2021-03-23] VITALS (10 sets, daily range): BP systolic 91–148; BP diastolic 40–79; PULSE 63–97; TEMP 97.2–98.3
[2021-03-23 06:27] LABS: BASO % 0.1 % (0.0-2.0); EOS # 0.5 (0.0-0.7); EOS % 5.4 % (0-4.0); GRAN # 6.7 (1.4-6.5); GRAN % 79.4 % (42.2-75.2); LYMPH # 0.7 (1.2-3.4); LYMPH % 7.9 % (20.0-51.0); MEAN CELL VOLUME 109 fl (80.0-100.0); MEAN CORPUSCULAR HGB CONC 31 g/dl (33.0-37.0); MEAN PLATELET VOLUME 11.5 fl (7.4-10.4); MONO # 0.6 (0.1-0.6); MONO % 6.6 % (1.7-9.3); PLATELET COUNT 117 K/mm3 (130-400); RED BLOOD COUNT 2.34 M/mm3 (4.20-5.60); REDCELL DISTRIBUTION WIDTH-CV 22.1 % (11.5-14.5)
--- NOTE | 2021-03-23 06:35 | NUR ---
Ready for EGD, pre-op check list done, report given to endo nurse, VSS.
[2021-03-23 06:36] LABS: HEMATOCRIT 25.5 % (42.0-52.0); HEMOGLOBIN 7.9 g/dl (13.5-18.0); MEAN CORPUSCULAR HEMOGLOBIN 34 pg (27.0-31.0)
[2021-03-23 06:53] LABS: ALBUMIN 3.8 gm/dL (3.5-5.0); CALCIUM 9.1 mg/dL (8.4-10.2); CREATININE, serum 3.33 (0.66-1.25); PHOSPHOROUS 4.7 mg/dL (2.5-4.5); POTASSIUM 3.9 mmol/L (3.4-5.0)
--- NOTE | 2021-03-23 07:10 | NUR ---
PT TAKEN DOWN FOR EGD
--- NOTE | 2021-03-23 08:30 | NUR ---
PT PLEASANT, AOX4, DENIES DISCOMFORT/PAIN, PT GAG REFLEX INTACT, RETURNED FROM EGD AT 0740. POST OP VITALS ENTERED. MEDICATIONS GIVEN, ASSESSMENT PERFORMED, HELPED SET UP ROOM FOR PT TO MOVE IN WITH SABRINAKA. ONCE PT SITUATED IN CHAIR RLE WAS WASHED AND ZINC CREAM APPLIED PER WOUND CARE ORDERS. FLUIDS INFUSING ON PT. AT BEDSIDE. NO OTHER NEEDS.
--- NOTE | 2021-03-23 10:49 | NUR ---
Initial visit; Patient and his thanked Castings Trimmer for looking in on Homar, visiting, offering encouragement and God's blessings.
--- NOTE | 2021-03-23 17:58 | NUR ---
pt denies pain, egd performed, aox4, at bedside with pt, pt up to chair and does not use bed, pt rle wound cleaned, no other needs
--- NOTE | 2021-03-23 19:02 | NUR ---
Received report from Veronica. Patient awake, sitting in the recliner.
--- NOTE | 2021-03-23 20:55 | NUR ---
Patient complains of pain on his bottom due to sitting for awhile. Tylenol given. With IV on right forearm infusing 1/2 NS at 50ml/hr. On room air. He still have black stools.
[2021-03-24] VITALS (7 sets, daily range): BP systolic 92–110; BP diastolic 39–50; PULSE 62–73; TEMP 97.2–98
--- NOTE | 2021-03-24 06:27 | NUR ---
Patient's blood pressure are a bit soft last night. Last BP is 110/44. He denies pain.
[2021-03-24 07:15] LABS: BASO % 0.1 % (0.0-2.0); EOS # 0.3 (0.0-0.7); EOS % 3.9 % (0-4.0); GRAN # 7.1 (1.4-6.5); GRAN % 81.4 % (42.2-75.2); LYMPH # 0.7 (1.2-3.4); LYMPH % 8.5 % (20.0-51.0); MEAN CELL VOLUME 113 fl (80.0-100.0); MEAN CORPUSCULAR HGB CONC 31 g/dl (33.0-37.0); MEAN PLATELET VOLUME 11.6 fl (7.4-10.4); MONO # 0.5 (0.1-0.6); MONO % 5.5 % (1.7-9.3); PLATELET COUNT 102 K/mm3 (130-400); REDCELL DISTRIBUTION WIDTH-CV 22.7 % (11.5-14.5)
[2021-03-24 07:23] LABS: ALBUMIN 3.4 gm/dL (3.5-5.0); CALCIUM 8.7 mg/dL (8.4-10.2); CREATININE, serum 3.59 (0.66-1.25); PHOSPHOROUS 4.9 mg/dL (2.5-4.5); POTASSIUM 3.5 mmol/L (3.4-5.0)
[2021-03-24 07:24] LABS: HEMATOCRIT 24.9 % (42.0-52.0); HEMOGLOBIN 7.7 g/dl (13.5-18.0); MEAN CORPUSCULAR HEMOGLOBIN 35 pg (27.0-31.0)
--- NOTE | 2021-03-24 19:03 | NUR ---
Received report from Kirstie. Patient awake, sitting in the recliner. Denies needs at this time.
[2021-03-25 04:12] VITALS: BP 126/52; PULSE 62; TEMP 97.6
--- NOTE | 2021-03-25 06:25 | NUR ---
Patient had been asleep most of the night. Blood glucose this morning is a bit low at 54mg/dl. Crackers and juice given. Rechecked glucose, it is now at 65 mg/dl.
[2021-03-25 06:46] LABS: BASO % 0.2 % (0.0-2.0); EOS # 0.4 (0.0-0.7); GRAN # 10.1 (1.4-6.5); GRAN % 81.1 % (42.2-75.2); LYMPH # 1.1 (1.2-3.4); LYMPH % 8.6 % (20.0-51.0); MEAN CELL VOLUME 110 fl (80.0-100.0); MEAN CORPUSCULAR HGB CONC 32 g/dl (33.0-37.0); MEAN PLATELET VOLUME 12.1 fl (7.4-10.4); MONO # 0.8 (0.1-0.6); MONO % 6.5 % (1.7-9.3); PLATELET COUNT 108 K/mm3 (130-400); RED BLOOD COUNT 2.29 M/mm3 (4.20-5.60); REDCELL DISTRIBUTION WIDTH-CV 22.6 % (11.5-14.5)
[2021-03-25 06:47] LABS: HEMATOCRIT 25.1 % (42.0-52.0); HEMOGLOBIN 7.9 g/dl (13.5-18.0); MEAN CORPUSCULAR HEMOGLOBIN 34 pg (27.0-31.0)
[2021-03-25 06:57] LABS: ALBUMIN 3.5 gm/dL (3.5-5.0); CALCIUM 8.8 mg/dL (8.4-10.2); CREATININE, serum 4.41 (0.66-1.25); PHOSPHOROUS 5.7 mg/dL (2.5-4.5); POTASSIUM 3.1 mmol/L (3.4-5.0)
[2021-03-25 08:43] VITALS: BP 103/48; PULSE 70; TEMP 97.4
--- NOTE | 2021-03-25 09:45 | NUR ---
Pt assessment complete. Pt is sitting up in the chair upon entry, Dr. Reagan just in to speak with patient and his . Pt denies any pain at this time. Reports some SOB on exertion. Discussed dressing change with patient who is agreeable to do later in the day. Dressing to [facility] site and R foot CDI. Therapy in to work with patient at this time. Call light within reach.
[2021-03-25 12:48] VITALS: BP 109/49; PULSE 88; TEMP 97.4
[2021-03-25 16:51] VITALS: BP 116/55; PULSE 100; TEMP 97.2
--- NOTE | 2021-03-25 19:11 | NUR ---
Pt slept through most of the day. Would arouse and speak with staff but quickly fall back asleep during conversation. A bit more awake tonight and attempting to eat. Denies any pain. May have breakfast tomorrow per Sherry MOSS but NPO following. Pt made aware. Dressing change and ointment applied to RLE. No needs at this time. Call light within reach.
--- NOTE | 2021-03-25 19:15 | NUR ---
Received report from Rhonda. Patient awake sitting in the recliner. Denies needs at this time.
[2021-03-25 19:21] VITALS: BP 106/51; BP 157/99; PULSE 79; PULSE 84; TEMP 98; TEMP 98.6
--- NOTE | 2021-03-25 23:30 | NUR ---
Angel from ICU called that patient had an episode of VTACH vs SVT for 3 seconds but was now back to normal sinus. Checked on patient, he was sitting in the recliner. He is asymptomatic. Current heart rate is 69bpm.
[2021-03-25 23:35] VITALS: BP 126/44; PULSE 74; TEMP 98
[2021-03-26 03:54] VITALS: BP 102/45; PULSE 83; TEMP 97.8
--- NOTE | 2021-03-26 05:28 | NUR ---
Patient slept most of the night. Informed him last night about NPO after midnight as ordered by Dr. Reagan. He verbalizes understanding.
[2021-03-26 06:38] LABS: BASO % 0.2 % (0.0-2.0); EOS # 0.3 (0.0-0.7); EOS % 2.1 % (0-4.0); GRAN # 10.1 (1.4-6.5); GRAN % 86.6 % (42.2-75.2); LYMPH # 0.5 (1.2-3.4); LYMPH % 4.4 % (20.0-51.0); MEAN CELL VOLUME 111 fl (80.0-100.0); MEAN CORPUSCULAR HGB CONC 32 g/dl (33.0-37.0); MEAN PLATELET VOLUME 11.9 fl (7.4-10.4); MONO # 0.7 (0.1-0.6); MONO % 6.2 % (1.7-9.3); PLATELET COUNT 101 K/mm3 (130-400); RED BLOOD COUNT 2.24 M/mm3 (4.20-5.60); REDCELL DISTRIBUTION WIDTH-CV 22.6 % (11.5-14.5)
[2021-03-26 06:41] LABS: HEMATOCRIT 24.8 % (42.0-52.0); HEMOGLOBIN 7.8 g/dl (13.5-18.0); MEAN CORPUSCULAR HEMOGLOBIN 35 pg (27.0-31.0)
[2021-03-26 06:56] LABS: ALBUMIN 3.2 gm/dL (3.5-5.0); CALCIUM 8.9 mg/dL (8.4-10.2); CREATININE, serum 4.91 (0.66-1.25); PHOSPHOROUS 5.7 mg/dL (2.5-4.5); POTASSIUM 3.3 mmol/L (3.4-5.0)
[2021-03-26 07:25] VITALS: BP 138/46; PULSE 77; TEMP 97.7
--- NOTE | 2021-03-26 10:15 | NUR ---
PT ASSISTED FROM BED BACK TO CHAIR, MEDICATIONS GIVEN, HELD DM MEDS DUE TO NPO STATUS, ASSESSMENT PERFORMED. NO OTHER NEEDS.
[2021-03-26 11:11] VITALS: BP 113/49; PULSE 78; TEMP 97.7
--- NOTE | 2021-03-26 12:23 | NUR ---
Follow-up visit; Patient awaiting a 'fistula procedure.' Farm Service Consultant visited with him and his and offered God's blessings.
[2021-03-26 17:27] VITALS: BP 103/45; PULSE 63
--- NOTE | 2021-03-26 17:34 | NUR ---
PT PLEASANT, CONFUSED AND DROWSY AT THIS TIME SINCE PROCEDURE, SUGAR 67, PT DRANK 8OZ OF JUICE. WILL RECHECK PER PROTOCOL, VITALS STABLE, NO OTHER NEEDS.
[2021-03-26 18:17] VITALS: BP 157/79
[2021-03-26 19:10] VITALS: BP 113/90; PULSE 71; TEMP 97.4
[2021-03-26 23:14] LABS: HEPATITIS B SURFACE ANTIBODY <2.0 (()); HEPATITIS B SURFACE ANTIGEN Negative (Negative); HEPATITIS C VIRUS ANTIBODY Negative (Negative)
[2021-03-27] VITALS (7 sets, daily range): BP systolic 81–120; BP diastolic 37–69; PULSE 73–97; TEMP 97.4–97.9
--- NOTE | 2021-03-27 00:42 | NUR ---
Patient laying in bed with eyes closed upon enter the room. Shift assessment completed. Patient very drowsy. Opens eyes upon verbal and tactile stimulation but falls back to sleep immediately. Denies any pain or discomfort. Denies SOB, N/V, or dizziness. All scheduled meds given per JAN. Call light within reach.
--- NOTE | 2021-03-27 07:24 | NUR ---
Patient BS was 58 at 06:18 am. Patient asymptomatic. 4oz of orange juice and some crackers offered. Patient drank orange juice and crackers without difficulty. Bs recheck was 72. Call light within reach.
--- NOTE | 2021-03-27 07:59 | NUR ---
Pt assessment complete. Pt is sitting up in his chair upon entry, he arouses to voice but is very drowsy falls asleep quickly during conversation. Pt a bit confused unable to tell me where his fistula was placed, or that breakfast had been ordered. Restriction band placed. POC discussed with patient who will start dialysis today. No further needs at this time. Call light within reach.
[2021-03-27 09:13] LABS: BASO % 0.2 % (0.0-2.0); EOS # 0.3 (0.0-0.7); EOS % 2.6 % (0-4.0); GRAN # 8.9 (1.4-6.5); GRAN % 78.5 % (42.2-75.2); LYMPH # 0.9 (1.2-3.4); LYMPH % 7.5 % (20.0-51.0); MEAN CELL VOLUME 109 fl (80.0-100.0); MEAN CORPUSCULAR HGB CONC 32 g/dl (33.0-37.0); MEAN PLATELET VOLUME 11.3 fl (7.4-10.4); MONO # 1.2 (0.1-0.6); MONO % 10.5 % (1.7-9.3); PLATELET COUNT 113 K/mm3 (130-400); RED BLOOD COUNT 2.27 M/mm3 (4.20-5.60); REDCELL DISTRIBUTION WIDTH-CV 22.8 % (11.5-14.5)
[2021-03-27 09:15] LABS: HEMATOCRIT 24.8 % (42.0-52.0); HEMOGLOBIN 7.8 g/dl (13.5-18.0); MEAN CORPUSCULAR HEMOGLOBIN 34 pg (27.0-31.0)
[2021-03-27 09:23] LABS: ALBUMIN 3.3 gm/dL (3.5-5.0); CALCIUM 9.2 mg/dL (8.4-10.2); CREATININE, serum 4.98 (0.66-1.25); PHOSPHOROUS 6.1 mg/dL (2.5-4.5); POTASSIUM 4.1 mmol/L (3.4-5.0)
--- NOTE | 2021-03-27 09:24 | NUR ---
Follow-up; Patient's feeling good about Homar starting Dialysis this morning. Lines Tender offered God's blessings to them both.
--- NOTE | 2021-03-27 11:35 | NUR ---
Pt back from dialysis at this time. Reports he feels about the same. Lunch ordered for patient. at bedside
--- NOTE | 2021-03-27 12:18 | NUR ---
Patient tolerated 1st HD tx with 1L fluid removal. Next planned Hd tx tomorrow, Friday03/28/21 @ 0800.
--- NOTE | 2021-03-27 16:12 | NUR ---
Hyperbaric Technician staffed with CHUY Moya, RAMA, VENKATESH from Dr. Garcia' office to discuss the patient's course of care. The patient initiated dialysis this day and they are looking at a tentative discharge possibly on Friday, 03/30.
--- NOTE | 2021-03-27 16:18 | NUR ---
Behavioral Science Chair faxed updates to Christina at [facility].
--- NOTE | 2021-03-27 19:08 | NUR ---
Pt rested on and off after dialysis. Was slightly irritated this afternoon per . Little to no appetite. Dressings to bilateral legs changed. Mepilex to patient's bottom placed, pt unable to tolerate repositioning and requests to stay in the chair. No needs at this time. Call light within reach.
--- NOTE | 2021-03-27 19:10 | NUR ---
Received report from Rhonda. Patient awake, sitting in the recliner.
--- NOTE | 2021-03-27 21:00 | NUR ---
Offered Preparation H for patient but he said he might need to poop anytime. Informed him I can give it after he had his BM. Patient a bit drowsy tonight. Gave patient handouts about pressure ulcer. He asked me to put a folded blanket on his left side to relieve with the pressure.
[2021-03-28] VITALS (8 sets, daily range): BP systolic 102–144; BP diastolic 40–88; PULSE 84–97; TEMP 97.4–97.6
--- NOTE | 2021-03-28 05:27 | NUR ---
Patient had witnessed fall at 0515H. He called saying he can't figure out how to go to the bedside commode. He said he had a mental block out and can't remember how to move his body in a right way to go to the commode. This nurse and Virginie PEREZ was in the room at the time of the fall. He was showing how he was able to do it independently for the past few days when suddenly he lost balance when he turned. Was able to caught him but his legs got weak to stand still so he sat on the floor. He didn't hit his head. He denies pain. Post fall vital signs taken. Informed patient that he needs to call us if he needs to stand and use the commode. Placed chair alarm and explained to him what it's for. He verbalizes understanding. Charge nurse and warehouse stocker aware. Will inform Dr. Garcia in the morning.
--- NOTE | 2021-03-28 07:02 | NUR ---
Informed Dr. Garcia via phone call regarding fall incident.
--- NOTE | 2021-03-28 08:15 | NUR ---
Pt assessment complete. Pt is sitting up in the chair upon entry, he is sleeping but arouses to voice. He is oriented, but also forgetful. Reports intermittent pain to his bottom, repositioned. Mepilex in place. Pt very quick to fall asleep during conversation. Discussed pressure sore and options for healing with patient and his . Dialysis catheter to R chest, dressing CDI. Restriction band on to LUE. Breakfast ordered for patient. No needs at this time.
--- NOTE | 2021-03-28 09:17 | NUR ---
Follow-up; spoke briefly with Jamar who was eating before his Physical Therapy. also offered her continued support for Jamar's ; Ni.
[2021-03-28 09:33] LABS: BASO % 0.3 % (0.0-2.0); EOS # 0.2 (0.0-0.7); EOS % 2.4 % (0-4.0); GRAN # 5.5 (1.4-6.5); LYMPH # 0.7 (1.2-3.4); LYMPH % 9.3 % (20.0-51.0); MEAN CELL VOLUME 110 fl (80.0-100.0); MEAN CORPUSCULAR HGB CONC 31 g/dl (33.0-37.0); MEAN PLATELET VOLUME 11.6 fl (7.4-10.4); MONO # 0.8 (0.1-0.6); MONO % 10.6 % (1.7-9.3); PLATELET COUNT 104 K/mm3 (130-400); RED BLOOD COUNT 2.15 M/mm3 (4.20-5.60); REDCELL DISTRIBUTION WIDTH-CV 23.2 % (11.5-14.5)
[2021-03-28 09:35] LABS: HEMATOCRIT 23.7 % (42.0-52.0); HEMOGLOBIN 7.3 g/dl (13.5-18.0); MEAN CORPUSCULAR HEMOGLOBIN 34 pg (27.0-31.0)
[2021-03-28 09:45] LABS: ALBUMIN 3.3 gm/dL (3.5-5.0); CREATININE, serum 4.68 (0.66-1.25); POTASSIUM 3.6 mmol/L (3.4-5.0)
--- NOTE | 2021-03-28 11:34 | NUR ---
Patient tolerated HD tx with 1.5L fluid removal. Next HD tx planned on Friday03/30/21 @ 0800.
--- NOTE | 2021-03-28 18:31 | NUR ---
Pt had uneventful afternoon after dialysis. Seemed more alert and conversive than this morning. Pt sitting on a donut which he thinks has helped his bottom a lot. Mepilex still in place. POC discussed with patient. Call light within reach.
--- NOTE | 2021-03-28 18:55 | NUR ---
Received report from Rhonda. Patient awake, sitting in the recliner. Denies needs at this time.
[2021-03-29] VITALS (7 sets, daily range): BP systolic 104–129; BP diastolic 44–57; PULSE 92–102; TEMP 97.4–98.6
--- NOTE | 2021-03-29 06:09 | NUR ---
Patient more alert and oriented tonight. Repositioned him in the recliner. Changed the dressing on his bottom. He is still sitting in the donut pillow to relieve pressure.
--- NOTE | 2021-03-29 07:18 | NUR ---
Patient awake sitting in his chair at this time. Does not C/O any pain, discomfort, or futher needs at this time. Will continue to monitor. Call light in reach. Fall precautions in place. Contact precautions in place.
--- NOTE | 2021-03-29 10:05 | NUR ---
Follow-up visit; Patient states he is doing ok today though it's too soon to tell if Dialysis is making a difference. Patient and Admittance Attendant have a good visit and she wished him well.
[2021-03-29 11:07] LABS: BASO % 0.3 % (0.0-2.0); EOS # 0.1 (0.0-0.7); EOS % 1.8 % (0-4.0); GRAN # 6.4 (1.4-6.5); GRAN % 80.8 % (42.2-75.2); LYMPH # 0.6 (1.2-3.4); LYMPH % 7.6 % (20.0-51.0); MEAN CELL VOLUME 110 fl (80.0-100.0); MEAN CORPUSCULAR HGB CONC 31 g/dl (33.0-37.0); MEAN PLATELET VOLUME 10.7 fl (7.4-10.4); MONO # 0.7 (0.1-0.6); PLATELET COUNT 109 K/mm3 (130-400); REDCELL DISTRIBUTION WIDTH-CV 23.4 % (11.5-14.5)
[2021-03-29 11:08] LABS: HEMATOCRIT 24.1 % (42.0-52.0); HEMOGLOBIN 7.5 g/dl (13.5-18.0); MEAN CORPUSCULAR HEMOGLOBIN 34 pg (27.0-31.0)
[2021-03-29 11:17] LABS: ALBUMIN 3.7 gm/dL (3.5-5.0); CALCIUM 9.6 mg/dL (8.4-10.2); CREATININE, serum 3.21 (0.66-1.25); PHOSPHOROUS 3.6 mg/dL (2.5-4.5); POTASSIUM 3.9 mmol/L (3.4-5.0)
--- NOTE | 2021-03-29 13:56 | NUR ---
Scheduled medications given. Assessments performed. Patient denies any pain or discomfort. Dressing changed on patient's sacrum and left stump. S1 on sacrum, no discharge, patient has been sitting on a cushion to relieve pressure. Yellow exudate present on left stump wound. Wound washed and dressed with absorbant dressing and gauze. During dressing change, patient's knee buckled and he was lowered to the floor. Patient did not hit his head or recieve any injuries. VSS. BS 186. Gait belt, walker, and utility repairer socks were being utilized. Bedros notified. Patient is resting in his chair at this time. Will continue to monitor. Call light in reach. Fall precautions in place. at bedside.
--- NOTE | 2021-03-29 18:25 | NUR ---
Scheduled meds given. Insulin not required, BS 139. Patient denies any pain, discomfort, or further needs at this time. Will continue to monitor. Call light in reach. Fall precautions in place.
--- NOTE | 2021-03-29 19:28 | NUR ---
CHANGE OF SHIFT REPORT RECEIVED FROM DAY SHIFT NURSE. PATIENT UP IN CHAIR. CONTACT ISOLATION CONTINUES. PATIENT DENIES AT NEEDS AT TIME OF REPORT.
[2021-03-30 03:30] VITALS: BP 107/47; PULSE 99; TEMP 97.6
--- NOTE | 2021-03-30 07:12 | NUR ---
Patient resting in the chair at this time. Patient denies any pain, discomfort, SOA, or further needs at this time. Will continue to monitor. Call light in reach. Fall precautions in place.
--- NOTE | 2021-03-30 07:30 | NUR ---
CHANGE OF SHIFT REPORT GIVEN TO DAY SHIFT NURSE, JOVANA KHAN.
[2021-03-30 07:55] VITALS: BP 116/47; PULSE 4; TEMP 97.5
--- NOTE | 2021-03-30 08:55 | NUR ---
Patient taken down to dialysis via WC.
[2021-03-30 09:18] LABS: BASO % 0.2 % (0.0-2.0); EOS # 0.2 (0.0-0.7); EOS % 2.8 % (0-4.0); GRAN # 6.4 (1.4-6.5); GRAN % 77.1 % (42.2-75.2); LYMPH # 0.7 (1.2-3.4); LYMPH % 8.8 % (20.0-51.0); MEAN CELL VOLUME 110 fl (80.0-100.0); MEAN CORPUSCULAR HGB CONC 31 g/dl (33.0-37.0); MEAN PLATELET VOLUME 11.4 fl (7.4-10.4); MONO # 0.9 (0.1-0.6); MONO % 10.6 % (1.7-9.3); PLATELET COUNT 112 K/mm3 (130-400); RED BLOOD COUNT 2.24 M/mm3 (4.20-5.60); REDCELL DISTRIBUTION WIDTH-CV 22.9 % (11.5-14.5)
[2021-03-30 09:22] LABS: HEMATOCRIT 24.7 % (42.0-52.0); HEMOGLOBIN 7.7 g/dl (13.5-18.0); MEAN CORPUSCULAR HEMOGLOBIN 34 pg (27.0-31.0)
[2021-03-30 09:27] LABS: ALBUMIN 3.5 gm/dL (3.5-5.0); CALCIUM 9.9 mg/dL (8.4-10.2); CREATININE, serum 3.48 (0.66-1.25); PHOSPHOROUS 3.7 mg/dL (2.5-4.5); POTASSIUM 3.6 mmol/L (3.4-5.0)
--- NOTE | 2021-03-30 10:25 | NUR ---
Patient given PRN tylenol for pain rated a 6/10 on his sacrum. Patient states that the pain is relieved when a donut is placed under him and he is repositioned. Will continue to monitor.
--- NOTE | 2021-03-30 10:51 | NUR ---
Follow-up visit; Patient in Dialysis, Card Feeder spoke with his about Caregiver options and help for her once she takes Homar home. Card Feeder stressed 'self care' as well. Ni thanked Card Feeder for her help.
--- NOTE | 2021-03-30 11:48 | NUR ---
Patient tolerated 3rd HD tx with 1.7L fluid removal. Next planned HD tx on Friday04/02/21 @ [facility].
[2021-03-30 12:29] VITALS: BP 116/46; PULSE 94; TEMP 97.4
[2021-03-30] MEDS ORDERED: ELIQUIS 2.5 PO (14:07)
[2021-03-30] MEDS ORDERED: CALPHRON667 MG PO (14:09)
[2021-03-30] MEDS ORDERED: DEMADEX10 MG PO (14:10)
--- NOTE | 2021-03-30 14:10 | NUR ---
Patient back from dialysis. Scheduled medications given. Right leg cleaned, ointment applied. Patient denies any pain, discomfort, or futher needs at this time. Lunch ordered. at the bedside. Will continue to monitor. Call light in reach. Fall precautions in place.
[2021-03-30] MEDS ORDERED: SODIUM BICARBO650 MG PO (14:11)
--- NOTE | 2021-03-30 15:19 | NUR ---
The patient discharged home today, 03/30 with spouse and [facility]. PT.OT.Nursing.Wound Care. Discharge orders faxed. Consulting Business Developer met with the patient's , Ni to follow up regarding discharge. She inquired about SNFs and wanted information such as visitor policies. MAGALYS provided SNF information. Ni inquired about having a staff from [facility] to assist with the patient at dialysis times if she needed extra support getting the patient to and from dialysis. MAGALYS discussed this would be private pay. She would a [facility] staff to contact her regarding the private pay for those services. Ni also requested staff visit the patient on Saturday 03/31. MAGALYS contacted Christina with [facility] regarding the above information. Christina states they will have a visit on 03/31. Christina states that staff that coordinates private duty services with contact the patient's on Friday, 04/02. No additional needs.
--- NOTE | 2021-03-30 17:16 | NUR ---
IV DC'D catheter intact, no signs of phlebitis. Discharge instruction/education given. Patient denies any questions or concerns at this time. VSS. Patient escorted from building by [facility] Staff.
== END 2021-03-30 16:00 | disposition home health service (06) | DRG 673 ==
LOC: MEDICAL 18:30
PROVIDERS: Surgery; ADMIT Internal Medicine Nephrology
PROC: 5A1D70Z Performance of Urinary Filtration, Intermittent, Less than 6 Hours Per Day (ICD-10-PCS; 2021-03-21)
PROC: 0W3P7ZZ Control Bleeding in Gastrointestinal Tract, Via Natural or Artificial Opening (ICD-10-PCS; 2021-03-23)
PROC: 0JH63XZ Insertion of Tunneled Vascular Access Device into Chest Subcutaneous Tissue and Fascia, Percutaneous Approach (ICD-10-PCS; 2021-03-26)
PROC: 02H633Z Insertion of Infusion Device into Right Atrium, Percutaneous Approach (ICD-10-PCS; 2021-03-26)
PROC: 03170ZD Bypass Right Brachial Artery to Upper Arm Vein, Open Approach (ICD-10-PCS; principal; 2021-03-26 11:45)
DX: I12.0 Hypertensive chronic kidney disease with stage 5 chronic kidney disease or end stage renal disease (principal); K31.811 Angiodysplasia of stomach and duodenum with bleeding; N18.6 End stage renal disease; E43 Unspecified severe protein-calorie malnutrition; N17.9 Acute kidney failure, unspecified; E87.2 Acidosis; G93.40 Encephalopathy, unspecified; D50.9 Iron deficiency anemia, unspecified; I48.91 Unspecified atrial fibrillation; E11.22 Type 2 diabetes mellitus with diabetic chronic kidney disease; L89.152 Pressure ulcer of sacral region, stage 2; I25.10 Atherosclerotic heart disease of native coronary artery without angina pectoris; E11.51 Type 2 diabetes mellitus with diabetic peripheral angiopathy without gangrene; M10.9 Gout, unspecified; K29.70 Gastritis, unspecified, without bleeding; E78.5 Hyperlipidemia, unspecified; K21.9 Gastro-esophageal reflux disease without esophagitis; Z79.01 Long term (current) use of anticoagulants; Z79.84 Long term (current) use of oral hypoglycemic drugs; Z89.512 Acquired absence of left leg below knee; Z95.1 Presence of aortocoronary bypass graft; Z87.891 Personal history of nicotine dependence
CPT/HCPCS: J0690; J1644; J1756; J1815; J2405; J2704; J3010; J7030; J7040; Q5105; Q5106